=== PATIENT | male | born 1955 | race Caucasian/White ===

== ENCOUNTER 2016-07-26 11:31 | Emergency (ER) | payer MEDICARE ==
[~2016-07-26 11:31] MED LIST: ALLOPURINOL100 MG PO; AMLODIPINE BESYL5 MG PO; FENTANYL75 MCG/HR TD; GABAPENTIN300 M1 PO; LISINOPRIL40 MG PO; METOPROLOL SUCC50 M2 PO; MIRAPEX1 MG PO; TRAMADOL HYDROC50 MG PO
[2016-07-26] MEDS ORDERED: CYCLOBENZAPRINE10 MG PO (15:29)
== END 2016-07-26 12:41 | disposition home or self-care (01) ==
LOC: ED 11:31
DX: S92.505A Nondisplaced unspecified fracture of left lesser toe(s), initial encounter for closed fracture (principal); S20.212A Contusion of left front wall of thorax, initial encounter; S40.012A Contusion of left shoulder, initial encounter; S50.312A Abrasion of left elbow, initial encounter; Z79.899 Other long term (current) drug therapy; Z98.890 Other specified postprocedural states; Z88.1 Allergy status to other antibiotic agents; W18.49XA Other slipping, tripping and stumbling without falling, initial encounter; Y93.89 Activity, other specified; Y92.211 Elementary school as the place of occurrence of the external cause; Y99.9 Unspecified external cause status

== ENCOUNTER → 2016-08-24 | Outpatient (CLI) | payer MEDICARE ==
[~2016-08-24] MED LIST changes: +CYCLOBENZAPRINE10 MG PO
== END | disposition home or self-care (01) ==
LOC: US 16:00
DX: E11.9 Type 2 diabetes mellitus without complications (principal); I89.0 Lymphedema, not elsewhere classified; M79.89 Other specified soft tissue disorders

== ENCOUNTER 2018-01-09 20:00 | Emergency (ER) | payer MEDICARE ==
[~2018-01-09] VITALS: Ht 175.2 cm; Wt 133.8 kg
== END 2018-01-09 21:13 | disposition home or self-care (01) ==
LOC: ED 20:00
DX: G89.29 Other chronic pain (principal); M54.5 Low back pain; Z79.899 Other long term (current) drug therapy; Z88.1 Allergy status to other antibiotic agents; Z91.040 Latex allergy status

== ENCOUNTER 2018-02-07 04:37 | Emergency (ER) | payer MEDICARE ==
[~2018-02-07] VITALS: Ht 172.7 cm; Wt 108.9 kg
[2018-02-07] MEDS ORDERED: HYDROCHLOROTH12.5 M3 PO (04:49)
[2018-02-07] MEDS ORDERED: Hydralazine Hyd25 MG PO (04:49)
== END 2018-02-07 05:17 | disposition home or self-care (01) ==
LOC: ED 04:37
DX: G89.29 Other chronic pain (principal); R20.2 Paresthesia of skin; G25.81 Restless legs syndrome; Z76.5 Malingerer [conscious simulation]; Z88.1 Allergy status to other antibiotic agents; Z91.040 Latex allergy status; Z79.899 Other long term (current) drug therapy

== ENCOUNTER 2018-06-18 15:18 | Emergency (ER) | payer MEDICARE ==
[~2018-06-18] VITALS: Ht 175.2 cm; Wt 136.1 kg
[~2018-06-18 15:18] MED LIST changes: +HYDROCHLOROTH12.5 M3 PO; +Hydralazine Hyd25 MG PO
[2018-06-18] MEDS ORDERED: PREDNISONE10 MG PO (15:52)
[2018-06-18] MEDS ORDERED: CHLORZOXAZONE500 M2 PO (15:52)
[2018-06-18 16:01] LABS: BILIRUBIN 1+ (NEGATIVE); BLOOD TRACE-INTACT (NEGATIVE); CLARITY SL CLOUDY (CLEAR); COLOR YELLOW (YELLOW); GLUCOSE NEGATIVE (NEGATIVE); KETONE NEGATIVE (NEGATIVE); LEUKO ESTERASE NEGATIVE (NEGATIVE); NITRITE NEGATIVE (NEGATIVE); PH 5.5 (5.0-9.0); SPECIFIC GRAVITY >= 1.030 (1.005-1.030)
[2018-06-18 16:40] LABS: EPITHELIAL CELLS 11-16B2ATR; MUCOUS TRACE; RBC 0-2 rbc/hpf (0-2)
[2018-06-18 17:36] LABS: BASO # 0.1 10*3/uL (0.0-0.1); BASO % 0.6 % (0.0-1.0); EOS # 0.1 10*3/uL (0.0-0.4); HEMATOCRIT 49.9 % (42.0-52.0); LYMPH # 1.5 10*3/uL (1.3-4.4); LYMPH % 11.9 % (27.0-41.0); MEAN CELL VOLUME 91.4 fl (80.0-94.0); MEAN CORPUSCULAR HGB 29.3 pg (27.0-31.0); MEAN CORPUSCULAR HGB CONC 32.1 g/dl (33.0-37.0); MEAN PLATELET VOLUME 9.7 fl (9.6-12.3); MONO # 0.6 10*3/uL (0.1-1.0); NEUT # 10.3 10*3/uL (2.3-7.9); NEUT % 80.8 % (47.0-73.0); PLATELET COUNT AUTOMATED 250 10*3/uL (130-400); RED BLOOD COUNT 5.46 10*6/uL (4.50-5.90); RED CELL DISTRI WIDTH 12.8 % (0-14.5); WHITE BLOOD COUNT 12.7 10*3/uL (4.8-10.8)
[2018-06-18 17:48] LABS: ACT PARTIAL THROMBO TIME 24.4 SECONDS (20.8-31.5)
[2018-06-18 18:11] LABS: ALBUMIN 3.3 gm/dl (3.1-4.5); ALKALINE PHOSPHATASE 108 U/L (45-117); BUN 16 mg/dl (7-24); CHLORIDE 98 mmol/L (98-107); CREATININE 0.79 mg/dL (0.70-1.30); POTASSIUM 4.6 mmol/L (3.5-5.1); SGOT/AST 20 IU/L (3-35); SGPT/ALT 28 U/L (12-78); SODIUM 135 mmol/L (136-145)
== END 2018-06-18 18:18 | disposition short-term general hospital (02) ==
LOC: ED 15:18
PROVIDERS: Nurse Practitioner Family
DX: S22.088A Other fracture of T11-T12 vertebra, initial encounter for closed fracture (principal); G89.29 Other chronic pain; Z88.1 Allergy status to other antibiotic agents; Z79.899 Other long term (current) drug therapy; W18.09XA Striking against other object with subsequent fall, initial encounter; Y93.89 Activity, other specified; Y92.89 Other specified places as the place of occurrence of the external cause; Y99.8 Other external cause status

== ENCOUNTER → 2018-09-30 | Outpatient (CLI) | payer MEDICARE ==
[~2018-09-30] MED LIST changes: +CHLORZOXAZONE500 M2 PO; +PREDNISONE10 MG PO
== END | disposition home or self-care (01) ==
LOC: LAB 00:32
DX: R80.9 Proteinuria, unspecified (principal)

== ENCOUNTER → 2019-06-07 | Outpatient (CLI) | payer MEDICARE ==
[2019-06-07 16:05] LABS: BASO # 0.1 10*3/uL (0.0-0.1); BASO % 0.6 % (0.0-1.0); EOS # 0.2 10*3/uL (0.0-0.4); EOS % 2.4 % (1.0-4.0); HEMATOCRIT 46.6 % (42.0-52.0); HEMOGLOBIN 14.1 g/dl (14.0-18.0); LYMPH # 1.7 10*3/uL (1.3-4.4); LYMPH % 18.1 % (27.0-41.0); MEAN CORPUSCULAR HGB 28.1 pg (27.0-31.0); MEAN CORPUSCULAR HGB CONC 30.3 g/dl (33.0-37.0); MEAN PLATELET VOLUME 10.5 fl (9.6-12.3); MONO # 0.7 10*3/uL (0.1-1.0); MONO % 7.7 % (3.0-9.0); NEUT # 6.6 10*3/uL (2.3-7.9); NEUT % 70.7 % (47.0-73.0); PLATELET COUNT AUTOMATED 233 10*3/uL (130-400); RED BLOOD COUNT 5.01 10*6/uL (4.50-5.90); RED CELL DISTRI WIDTH 14.6 % (0-14.5); WHITE BLOOD COUNT 9.3 10*3/uL (4.8-10.8)
[2019-06-07 16:33] LABS: ALBUMIN 2.9 gm/dl (3.1-4.5); ALKALINE PHOSPHATASE 87 U/L (45-117); BUN 22 mg/dl (7-24); CHLORIDE 105 mmol/L (98-107); CREATININE 0.76 mg/dL (0.70-1.30); POTASSIUM 4.5 mmol/L (3.5-5.1); SGOT/AST 23 IU/L (3-35); SGPT/ALT 44 U/L (12-78); SODIUM 141 mmol/L (136-145); TOTAL PROTEIN 6.5 gm/dL (6.4-8.2)
== END | disposition home or self-care (01) ==
LOC: RESCLI 00:26
PROVIDERS: Internal Medicine Nephrology
DX: M87.9 Osteonecrosis, unspecified (principal); R26.9 Unspecified abnormalities of gait and mobility; G89.29 Other chronic pain; I10 Essential (primary) hypertension; K21.9 Gastro-esophageal reflux disease without esophagitis; J40 Bronchitis, not specified as acute or chronic; K04.7 Periapical abscess without sinus; N40.1 Benign prostatic hyperplasia with lower urinary tract symptoms; F32.9 Major depressive disorder, single episode, unspecified; E55.9 Vitamin D deficiency, unspecified; J44.9 Chronic obstructive pulmonary disease, unspecified; G47.30 Sleep apnea, unspecified; L30.9 Dermatitis, unspecified; Z13.9 Encounter for screening, unspecified; R49.0 Dysphonia; Z79.899 Other long term (current) drug therapy; Z88.8 Allergy status to other drugs, medicaments and biological substances

== ENCOUNTER 2019-09-26 09:48 | Inpatient (IN) | payer MEDICARE ==
[~2019-09-26] VITALS: Ht 175.2 cm; Wt 145.4 kg
[2019-09-26 09:58] VITALS: BP 202/129
[2019-09-26 10:39] LABS: BASO # 0.1 10*3/uL (0.0-0.1); BASO % 0.6 % (0.0-1.0); EOS # 0.1 10*3/uL (0.0-0.4); EOS % 0.5 % (1.0-4.0); HEMATOCRIT 43.5 % (42.0-52.0); MEAN CELL VOLUME 92.4 fl (80.0-94.0); MEAN CORPUSCULAR HGB 28.7 pg (27.0-31.0); MEAN PLATELET VOLUME 9.7 fl (9.6-12.3); MONO # 0.3 10*3/uL (0.1-1.0); MONO % 3.4 % (3.0-9.0); NEUT % 84.4 % (47.0-73.0); PLATELET COUNT AUTOMATED 232 10*3/uL (130-400); RED BLOOD COUNT 4.71 10*6/uL (4.50-5.90); RED CELL DISTRI WIDTH 14.2 % (0-14.5); WHITE BLOOD COUNT 9.5 10*3/uL (4.8-10.8)
[2019-09-26 10:56] LABS: ALBUMIN 2.8 gm/dl (3.1-4.5); ALKALINE PHOSPHATASE 87 U/L (45-117); BUN 26 mg/dl (7-24); CHLORIDE 103 mmol/L (98-107); CREATININE 0.76 mg/dL (0.70-1.30); POTASSIUM 4.6 mmol/L (3.5-5.1); SGOT/AST 23 IU/L (3-35); SGPT/ALT 51 U/L (12-78); SODIUM 141 mmol/L (136-145); TOTAL PROTEIN 6.7 gm/dL (6.4-8.2); TROPONIN I 0.031 ng/ml (<0.045)
[2019-09-26 11:11] LABS: BILIRUBIN NEGATIVE (NEGATIVE); BLOOD 1+ (NEGATIVE); CLARITY SL CLOUDY (CLEAR); COLOR YELLOW (YELLOW); GLUCOSE NEGATIVE (NEGATIVE); KETONE NEGATIVE (NEGATIVE); LEUKO ESTERASE NEGATIVE (NEGATIVE); NITRITE NEGATIVE (NEGATIVE); PH 7.5 (5.0-9.0); SPECIFIC GRAVITY 1.015 (1.005-1.030); UROBILINOGEN 0.2 E.U./dl (0.2-1.0)
[2019-09-26 11:20] LABS: BACTERIA TRACE; EPITHELIAL CELLS 0-2; WBC 0-2 wbc/hpf (0-5)
[2019-09-26] MEDS ORDERED: PREDNISONE10 MG PO (13:01)
[2019-09-26] MEDS ORDERED: Duragesic 50 M50 MCG TD (13:02)
[2019-09-26] MEDS ORDERED: NORCO 10-325 T1 EACH PO (13:03)
[2019-09-26] MEDS ORDERED: OMEPRAZOLE20 M2 PO (13:03)
[2019-09-26] MEDS ORDERED: LOPRESSOR100 M1 PO (13:04)
[2019-09-26] MEDS ORDERED: GABAPENTIN400 MG PO (13:05)
[2019-09-26 14:01] VITALS: BP 148/70
[2019-09-26 14:50] VITALS: BP 170/71
[2019-09-26 20:00] VITALS: BP 167/58
[2019-09-27] VITALS: BP 169/66
[2019-09-27 06:19] LABS: BASO # 0.1 10*3/uL (0.0-0.1); BASO % 0.5 % (0.0-1.0); EOS # 0.2 10*3/uL (0.0-0.4); EOS % 1.8 % (1.0-4.0); HEMATOCRIT 45.2 % (42.0-52.0); LYMPH # 1.5 10*3/uL (1.3-4.4); LYMPH % 15.3 % (27.0-41.0); MEAN CELL VOLUME 92.2 fl (80.0-94.0); MEAN CORPUSCULAR HGB 28.6 pg (27.0-31.0); MEAN PLATELET VOLUME 9.8 fl (9.6-12.3); MONO # 0.8 10*3/uL (0.1-1.0); MONO % 7.7 % (3.0-9.0); NEUT # 7.3 10*3/uL (2.3-7.9); NEUT % 73.8 % (47.0-73.0); PLATELET COUNT AUTOMATED 252 10*3/uL (130-400); RED CELL DISTRI WIDTH 14.1 % (0-14.5); WHITE BLOOD COUNT 9.9 10*3/uL (4.8-10.8)
[2019-09-27 06:29] LABS: BUN 22 mg/dl (7-24); CHLORIDE 98 mmol/L (98-107); CREATININE 0.76 mg/dL (0.70-1.30); POTASSIUM 3.9 mmol/L (3.5-5.1); SODIUM 139 mmol/L (136-145)
[2019-09-27 07:52] LABS: VITAMIN D, 25-HYDROXY 23.7 ng/mL (30-100)
[2019-09-27 08:00] VITALS: BP 134/82
[2019-09-27 12:00] VITALS: BP 147/61
[2019-09-27 16:00] VITALS: BP 103/84
[2019-09-27 20:00] VITALS: BP 138/44
[2019-09-27 22:00] VITALS: BP 140/60
[2019-09-28] VITALS: BP 156/83
[2019-09-28 06:08] LABS: BASO # 0.1 10*3/uL (0.0-0.1); BASO % 0.6 % (0.0-1.0); EOS # 0.2 10*3/uL (0.0-0.4); EOS % 2.1 % (1.0-4.0); HEMATOCRIT 45.1 % (42.0-52.0); LYMPH # 1.5 10*3/uL (1.3-4.4); LYMPH % 14.2 % (27.0-41.0); MEAN CORPUSCULAR HGB 29.1 pg (27.0-31.0); MEAN CORPUSCULAR HGB CONC 30.2 g/dl (33.0-37.0); MEAN PLATELET VOLUME 10.1 fl (9.6-12.3); MONO # 0.8 10*3/uL (0.1-1.0); MONO % 7.7 % (3.0-9.0); NEUT # 8.1 10*3/uL (2.3-7.9); NEUT % 74.6 % (47.0-73.0); PLATELET COUNT AUTOMATED 247 10*3/uL (130-400); RED BLOOD COUNT 4.67 10*6/uL (4.50-5.90); RED CELL DISTRI WIDTH 14.3 % (0-14.5); WHITE BLOOD COUNT 10.8 10*3/uL (4.8-10.8)
[2019-09-28 06:11] LABS: MEAN CELL VOLUME 96.6 fl (80.0-94.0)
[2019-09-28 06:24] LABS: BUN 22 mg/dl (7-24); CHLORIDE 97 mmol/L (98-107); CREATININE 0.71 mg/dL (0.70-1.30); POTASSIUM 3.8 mmol/L (3.5-5.1); SODIUM 140 mmol/L (136-145)
[2019-09-28 07:13] LABS: ABG BASE EXCESS 14.7 mmol/L (-2.0-2.0); ARTERIAL BLOOD GAS PH 7.309 (7.35-7.45)
[2019-09-28 12:00] VITALS: BP 105/53
[2019-09-28 12:37] LABS: ABG BASE EXCESS 15.2 mmol/L (-2.0-2.0); ARTERIAL BLOOD GAS PH 7.402 (7.35-7.45)
[2019-09-28 16:00] VITALS: BP 108/52
[2019-09-28 20:00] VITALS: BP 125/55
[2019-09-28 22:00] VITALS: BP 142/69
[2019-09-29] VITALS: BP 134/69
[2019-09-29 06:47] LABS: BUN 26 mg/dl (7-24); CHLORIDE 99 mmol/L (98-107); CREATININE 0.77 mg/dL (0.70-1.30); POTASSIUM 3.7 mmol/L (3.5-5.1); SODIUM 139 mmol/L (136-145)
[2019-09-29 08:00] VITALS: BP 107/35
[2019-09-29 08:31] LABS: BASO % 0.3 % (0.0-1.0); EOS # 0.6 10*3/uL (0.0-0.4); EOS % 4.9 % (1.0-4.0); LYMPH # 3.1 10*3/uL (1.3-4.4); LYMPH % 27.2 % (27.0-41.0); MEAN CORPUSCULAR HGB 28.8 pg (27.0-31.0); MEAN CORPUSCULAR HGB CONC 30.9 g/dl (33.0-37.0); MEAN PLATELET VOLUME 10.2 fl (9.6-12.3); MONO % 8.3 % (3.0-9.0); NEUT # 6.8 10*3/uL (2.3-7.9); PLATELET COUNT AUTOMATED 243 10*3/uL (130-400); RED BLOOD COUNT 5.04 10*6/uL (4.50-5.90); RED CELL DISTRI WIDTH 13.7 % (0-14.5); WHITE BLOOD COUNT 11.5 10*3/uL (4.8-10.8)
[2019-09-29 08:32] LABS: MEAN CELL VOLUME 93.3 fl (80.0-94.0)
[2019-09-29 12:00] VITALS: BP 115/84
[2019-09-29 16:00] VITALS: BP 121/41
[2019-09-29 20:00] VITALS: BP 138/53
[2019-09-30] VITALS: BP 140/62
[2019-09-30 08:00] VITALS: BP 118/42
[2019-09-30 12:00] VITALS: BP 126/45
[2019-09-30 16:00] VITALS: BP 137/51
[2019-09-30 20:00] VITALS: BP 126/57
[2019-10-01] VITALS: BP 134/59
[2019-10-01 06:28] LABS: BASO # 0.1 10*3/uL (0.0-0.1); BASO % 0.5 % (0.0-1.0); EOS # 0.2 10*3/uL (0.0-0.4); EOS % 2.1 % (1.0-4.0); MEAN CELL VOLUME 97.8 fl (80.0-94.0); MEAN CORPUSCULAR HGB 29.1 pg (27.0-31.0); MEAN CORPUSCULAR HGB CONC 29.8 g/dl (33.0-37.0); MONO # 0.9 10*3/uL (0.1-1.0); NEUT # 7.4 10*3/uL (2.3-7.9); NEUT % 69.8 % (47.0-73.0); PLATELET COUNT AUTOMATED 221 10*3/uL (130-400); RED CELL DISTRI WIDTH 14.1 % (0-14.5); WHITE BLOOD COUNT 10.6 10*3/uL (4.8-10.8)
[2019-10-01 07:02] LABS: BUN 32 mg/dl (7-24); CHLORIDE 101 mmol/L (98-107); CREATININE 0.81 mg/dL (0.70-1.30); SODIUM 136 mmol/L (136-145)
[2019-10-01 08:00] VITALS: BP 134/41
[2019-10-01] MEDS ORDERED: LASIX40 MG PO (08:28)
[2019-10-01] MEDS ORDERED: Vitamin D (1,000 UNI PO (08:28)
[2019-10-01] MEDS ORDERED: METOPROLOL TART50 M1 PO (08:28)
[2019-10-01] MEDS ORDERED: AMMONIUM LACTA227 GM T (08:28)
== END 2019-10-01 11:50 | disposition home or self-care (01) | DRG 291 ==
LOC: ED 09:48 → 4E 12:08 → EDHOLD 12:08 → 4E 12:35
PROVIDERS: Emergency Medicine; Internal Medicine; Internal Medicine Critical Care Medicine; Student in an Organized Health Care Education/Training Program; ADMIT Internal Medicine
PROC: 5A09357 Assistance with Respiratory Ventilation, Less than 24 Consecutive Hours, Continuous Positive Airway Pressure (ICD-10-PCS; principal; 2019-09-28)
PROC: 5A09357 Assistance with Respiratory Ventilation, Less than 24 Consecutive Hours, Continuous Positive Airway Pressure (ICD-10-PCS; 2019-09-29)
PROC: 5A09357 Assistance with Respiratory Ventilation, Less than 24 Consecutive Hours, Continuous Positive Airway Pressure (ICD-10-PCS; 2019-09-30)
PROC: 5A09357 Assistance with Respiratory Ventilation, Less than 24 Consecutive Hours, Continuous Positive Airway Pressure (ICD-10-PCS; 2019-10-01)
DX: I11.0 Hypertensive heart disease with heart failure (principal); J96.22 Acute and chronic respiratory failure with hypercapnia; J96.21 Acute and chronic respiratory failure with hypoxia; E44.0 Moderate protein-calorie malnutrition; J44.1 Chronic obstructive pulmonary disease with (acute) exacerbation; E87.3 Alkalosis; Z68.43 Body mass index [BMI] 50.0-59.9, adult; I50.33 Acute on chronic diastolic (congestive) heart failure; M19.90 Unspecified osteoarthritis, unspecified site; D64.9 Anemia, unspecified; E11.65 Type 2 diabetes mellitus with hyperglycemia; G47.33 Obstructive sleep apnea (adult) (pediatric); E11.51 Type 2 diabetes mellitus with diabetic peripheral angiopathy without gangrene; E66.01 Morbid (severe) obesity due to excess calories; G89.29 Other chronic pain; F32.9 Major depressive disorder, single episode, unspecified; M06.9 Rheumatoid arthritis, unspecified; Z88.1 Allergy status to other antibiotic agents; Z82.49 Family history of ischemic heart disease and other diseases of the circulatory system; Z79.899 Other long term (current) drug therapy; Z82.3 Family history of stroke; Z91.19 Patient's noncompliance with other medical treatment and regimen

== ENCOUNTER → 2019-10-05 | Outpatient (CLI) | payer MEDICARE ==
[~2019-10-05] MED LIST changes: +AMMONIUM LACTA227 GM T; +Duragesic 50 M50 MCG TD; +GABAPENTIN400 MG PO; +LASIX40 MG PO; +LOPRESSOR100 M1 PO; +METOPROLOL TART50 M1 PO; +NORCO 10-325 T1 EACH PO; +OMEPRAZOLE20 M2 PO; +Vitamin D (1,000 UNI PO
== END | disposition home or self-care (01) ==
LOC: RESCLI 00:34
DX: K21.9 Gastro-esophageal reflux disease without esophagitis (principal); M54.16 Radiculopathy, lumbar region; M1A Chronic gout; R26.9 Unspecified abnormalities of gait and mobility; G25.81 Restless legs syndrome; R53.82 Chronic fatigue, unspecified; G47.30 Sleep apnea, unspecified; I10 Essential (primary) hypertension; M16.11 Unilateral primary osteoarthritis, right hip; E11.42 Type 2 diabetes mellitus with diabetic polyneuropathy; N40.1 Benign prostatic hyperplasia with lower urinary tract symptoms; R13.10 Dysphagia, unspecified; M47.817 Spondylosis without myelopathy or radiculopathy, lumbosacral region; I73.9 Peripheral vascular disease, unspecified; M16.0 Bilateral primary osteoarthritis of hip; M45.9 Ankylosing spondylitis of unspecified sites in spine; I87.2 Venous insufficiency (chronic) (peripheral); M87.9 Osteonecrosis, unspecified; M06.9 Rheumatoid arthritis, unspecified; G62.9 Polyneuropathy, unspecified; E55.9 Vitamin D deficiency, unspecified; F32.9 Major depressive disorder, single episode, unspecified; F41.9 Anxiety disorder, unspecified; F41.0 Panic disorder [episodic paroxysmal anxiety]; E78.5 Hyperlipidemia, unspecified; J44.9 Chronic obstructive pulmonary disease, unspecified; E11.9 Type 2 diabetes mellitus without complications; E66.01 Morbid (severe) obesity due to excess calories; G89.29 Other chronic pain; H61.20 Impacted cerumen, unspecified ear; Z79.4 Long term (current) use of insulin

== ENCOUNTER → 2019-10-17 | Outpatient (CLI) | payer MEDICARE ==
[2019-10-17 17:31] LABS: BUN 21 mg/dl (7-24); CHLORIDE 107 mmol/L (98-107); CREATININE 0.77 mg/dL (0.70-1.30); POTASSIUM 4.5 mmol/L (3.5-5.1); SODIUM 143 mmol/L (136-145)
[2019-10-18 07:15] LABS: TOTAL PROTEIN, SERUM 6.1 g/dL (6.0-8.5)
[2019-10-18 16:07] LABS: A/G RATIO 1.1 (0.7-1.7); ALBUMIN 3.2 g/dL (2.9-4.4); ALPHA-1-GLOBULIN 0.3 g/dL (0.0-0.4); ALPHA-2-GLOBULIN 0.9 g/dL (0.4-1.0); BETA GLOBULIN 1.1 g/dL (0.7-1.3); GAMMA GLOBULIN 0.7 g/dL (0.4-1.8); GLOBULIN, TOTAL 2.9 g/dL (2.2-3.9); M-SPIKE Not Observed g/dL (Not Observed)
== END | disposition home or self-care (01) ==
LOC: LAB 14:34
PROVIDERS: Internal Medicine Nephrology
DX: S32.009A Unspecified fracture of unspecified lumbar vertebra, initial encounter for closed fracture (principal); I12.9 Hypertensive chronic kidney disease with stage 1 through stage 4 chronic kidney disease, or unspecified chronic kidney disease; N18.3 Chronic kidney disease, stage 3 (moderate); E03.9 Hypothyroidism, unspecified; R60.0 Localized edema; E55.9 Vitamin D deficiency, unspecified; Z79.899 Other long term (current) drug therapy; X58.XXXA Exposure to other specified factors, initial encounter; Y93.89 Activity, other specified; Y92.89 Other specified places as the place of occurrence of the external cause; Y99.8 Other external cause status

== ENCOUNTER → 2019-10-19 | Outpatient (CLI) | payer MEDICARE ==
[2019-10-20 14:29] LABS: BILIRUBIN NEGATIVE (NEGATIVE); BLOOD NEGATIVE (NEGATIVE); CLARITY CLOUDY (CLEAR); COLOR YELLOW (YELLOW); GLUCOSE NEGATIVE (NEGATIVE); KETONE NEGATIVE (NEGATIVE); LEUKO ESTERASE NEGATIVE (NEGATIVE); NITRITE NEGATIVE (NEGATIVE); UROBILINOGEN 0.2 E.U./dl (0.2-1.0)
[2019-10-20 14:34] LABS: BACTERIA 1+; CALCIUM OXALATE CRYSTALS 3+; EPITHELIAL CELLS 0-2; FINE GRANULAR CAST 0-2
[2019-10-21 10:07] LABS: CREATININE,URINE 137.6 mg/dL (Not Estab.)
[2019-10-24 14:11] LABS: ALBUMIN, URINE 76.4 % (.); ALPHA-1-GLOBULIN, URINE 1.2 % (.); ALPHA-2-GLOBULIN, URINE 5.1 % (.); GAMMA GLOBULIN, URINE 6.2 % (.); M-SPIKE, % Not Observed % (Not Observed); PROTEIN,TOTAL - URINE RANDOM 114.3 mg/dL (Not Estab.)
== END | disposition home or self-care (01) ==
LOC: LAB 13:56
PROVIDERS: Internal Medicine Nephrology
DX: I12.9 Hypertensive chronic kidney disease with stage 1 through stage 4 chronic kidney disease, or unspecified chronic kidney disease (principal); N18.2 Chronic kidney disease, stage 2 (mild); D64.9 Anemia, unspecified; E55.9 Vitamin D deficiency, unspecified; R22.0 Localized swelling, mass and lump, head

== ENCOUNTER → 2019-10-25 | Outpatient (CLI) | payer MEDICARE | END | disposition home or self-care (01) | LOC: LAB 10:55 | DX: R53.83 Other fatigue (principal); D64.9 Anemia, unspecified ==

== ENCOUNTER → 2019-11-08 | Outpatient (CLI) | payer MEDICARE | END | disposition home or self-care (01) | LOC: RESCLI 00:38 | DX: Z23 Encounter for immunization (principal); K21.9 Gastro-esophageal reflux disease without esophagitis; R53.83 Other fatigue; G47.30 Sleep apnea, unspecified; M16.11 Unilateral primary osteoarthritis, right hip; E11.42 Type 2 diabetes mellitus with diabetic polyneuropathy; N40.1 Benign prostatic hyperplasia with lower urinary tract symptoms; R13.10 Dysphagia, unspecified; M47.817 Spondylosis without myelopathy or radiculopathy, lumbosacral region; I73.9 Peripheral vascular disease, unspecified; M16.0 Bilateral primary osteoarthritis of hip; M45.9 Ankylosing spondylitis of unspecified sites in spine; I87.2 Venous insufficiency (chronic) (peripheral); M87.9 Osteonecrosis, unspecified; M06.9 Rheumatoid arthritis, unspecified; I10 Essential (primary) hypertension; G62.9 Polyneuropathy, unspecified; E55.9 Vitamin D deficiency, unspecified; F32.9 Major depressive disorder, single episode, unspecified; F41.9 Anxiety disorder, unspecified; F41.0 Panic disorder [episodic paroxysmal anxiety]; E78.5 Hyperlipidemia, unspecified; J44.9 Chronic obstructive pulmonary disease, unspecified; E11.9 Type 2 diabetes mellitus without complications; E66.01 Morbid (severe) obesity due to excess calories; G89.29 Other chronic pain; M1A Chronic gout; H61.20 Impacted cerumen, unspecified ear; Z79.4 Long term (current) use of insulin; Z79.899 Other long term (current) drug therapy; Z98.890 Other specified postprocedural states; Z88.8 Allergy status to other drugs, medicaments and biological substances ==

== ENCOUNTER → 2019-12-14 | Outpatient (CLI) | payer MEDICARE ==
[2019-12-14 13:33] LABS: ALKALINE PHOSPHATASE 89 U/L (45-117); BILIRUBIN, DIRECT < 0.1 mg/dL (0.0-0.2); BUN 22 mg/dl (7-24); SGOT/AST 15 IU/L (3-35); SGPT/ALT 25 U/L (12-78)
== END | disposition home or self-care (01) ==
LOC: LAB 12:32
PROVIDERS: Registered Nurse Critical Care Medicine
DX: Z79.899 Other long term (current) drug therapy (principal)

== ENCOUNTER → 2020-01-16 | Outpatient (CLI) | payer MEDICARE ==
[2020-01-16 10:43] LABS: BASO # 0.1 10*3/uL (0.0-0.1); BASO % 0.8 % (0.0-1.0); EOS # 0.3 10*3/uL (0.0-0.4); EOS % 3.8 % (1.0-4.0); HEMATOCRIT 40.9 % (42.0-52.0); LYMPH # 1.5 10*3/uL (1.3-4.4); LYMPH % 20.1 % (27.0-41.0); MEAN CELL VOLUME 97.4 fl (80.0-94.0); MEAN CORPUSCULAR HGB 29.3 pg (27.0-31.0); MEAN CORPUSCULAR HGB CONC 30.1 g/dl (33.0-37.0); MEAN PLATELET VOLUME 10.7 fl (9.6-12.3); MONO # 0.6 10*3/uL (0.1-1.0); NEUT # 5.1 10*3/uL (2.3-7.9); NEUT % 66.9 % (47.0-73.0); PLATELET COUNT AUTOMATED 194 10*3/uL (130-400); RED CELL DISTRI WIDTH 13.5 % (0-14.5); WHITE BLOOD COUNT 7.6 10*3/uL (4.8-10.8)
[2020-01-16 11:13] LABS: URINE CREATININE RANDOM 94.9 mg/dL
[2020-01-16 11:15] LABS: ALBUMIN 2.9 gm/dl (3.1-4.5); BUN 39 mg/dl (7-24); CHLORIDE 107 mmol/L (98-107); SODIUM 140 mmol/L (136-145)
[2020-01-16 11:19] LABS: ALKALINE PHOSPHATASE 91 U/L (45-117); CREATININE 0.82 mg/dL (0.70-1.30); SGOT/AST 34 IU/L (3-35); SGPT/ALT 28 U/L (12-78); URIC ACID 6.5 mg/dL (3.5-7.2)
[2020-01-16 11:30] LABS: POTASSIUM 5.3 mmol/L (3.5-5.1)
[2020-01-17 09:07] LABS: CREATININE,URINE 86.6 mg/dL (Not Estab.)
== END | disposition home or self-care (01) ==
LOC: LAB 10:06
PROVIDERS: Nurse Practitioner Family; ATTEND Internal Medicine Infectious Disease
DX: M77.31 Calcaneal spur, right foot (principal); N18.1 Chronic kidney disease, stage 1

== ENCOUNTER → 2020-04-04 | Outpatient (CLI) | payer MEDICARE ==
[2020-04-04 12:10] LABS: BILIRUBIN Negative (Negative); BLOOD Negative (Negative); CLARITY Clear (Clear); COLOR Yellow (Yellow); GLUCOSE Negative (Negative); KETONE Negative (Negative); LEUKO ESTERASE 2+ (Negative); NITRITE Negative (Negative); SPECIFIC GRAVITY 1.025 (1.001-1.030); UROBILINOGEN 0.2 E.U./dl (0.0-1.0)
[2020-04-04 12:36] LABS: WBC 21-30 wbc/hpf (0-5)
[2020-04-04 12:38] LABS: BACTERIA 2+; MUCOUS 1+
== END | disposition home or self-care (01) ==
LOC: RESCLI 00:26
PROVIDERS: Hospitalist; ATTEND Internal Medicine Nephrology
DX: M54.16 Radiculopathy, lumbar region (principal); B86 Scabies; G62.9 Polyneuropathy, unspecified; E55.9 Vitamin D deficiency, unspecified; E78.5 Hyperlipidemia, unspecified; M16.11 Unilateral primary osteoarthritis, right hip; G25.81 Restless legs syndrome; F41.9 Anxiety disorder, unspecified; I73.9 Peripheral vascular disease, unspecified; E66.01 Morbid (severe) obesity due to excess calories; M45.9 Ankylosing spondylitis of unspecified sites in spine; F41.0 Panic disorder [episodic paroxysmal anxiety]; N40.1 Benign prostatic hyperplasia with lower urinary tract symptoms; I87.2 Venous insufficiency (chronic) (peripheral); E11.9 Type 2 diabetes mellitus without complications; R13.10 Dysphagia, unspecified; K21.9 Gastro-esophageal reflux disease without esophagitis; R53.82 Chronic fatigue, unspecified; F32.9 Major depressive disorder, single episode, unspecified; J44.9 Chronic obstructive pulmonary disease, unspecified; G47.30 Sleep apnea, unspecified; M06.9 Rheumatoid arthritis, unspecified; M87.9 Osteonecrosis, unspecified; I11.0 Hypertensive heart disease with heart failure; I50.32 Chronic diastolic (congestive) heart failure; R26.9 Unspecified abnormalities of gait and mobility; H61.20 Impacted cerumen, unspecified ear; M1A.9XX0 Chronic gout, unspecified, without tophus (tophi); N39.0 Urinary tract infection, site not specified; Z79.4 Long term (current) use of insulin; Z12.11 Encounter for screening for malignant neoplasm of colon; Z79.899 Other long term (current) drug therapy; Z98.890 Other specified postprocedural states; Z88.8 Allergy status to other drugs, medicaments and biological substances

== ENCOUNTER → 2020-04-17 | Outpatient (CLI) | payer MEDICARE | END | disposition home or self-care (01) | LOC: RESCLI 00:36 | PROVIDERS: ATTEND Student in an Organized Health Care Education/Training Program | DX: B86 Scabies (principal); F32.9 Major depressive disorder, single episode, unspecified; K21.9 Gastro-esophageal reflux disease without esophagitis; G25.81 Restless legs syndrome; N40.1 Benign prostatic hyperplasia with lower urinary tract symptoms; N39.0 Urinary tract infection, site not specified; Z79.899 Other long term (current) drug therapy; Z88.8 Allergy status to other drugs, medicaments and biological substances ==

== ENCOUNTER → 2020-04-25 | Outpatient (CLI) | payer MEDICARE ==
[2020-04-25 09:53] LABS: BASO # 0.1 10*3/uL (0.0-0.1); BASO % 0.8 % (0.0-1.0); EOS # 0.2 10*3/uL (0.0-0.4); EOS % 2.4 % (1.0-4.0); HEMATOCRIT 41.6 % (42.0-52.0); LYMPH # 1.8 10*3/uL (1.3-4.4); LYMPH % 21.2 % (27.0-41.0); MEAN CELL VOLUME 98.3 fl (80.0-94.0); MEAN CORPUSCULAR HGB CONC 30.5 g/dl (33.0-37.0); MEAN PLATELET VOLUME 10.1 fl (9.6-12.3); MONO # 0.6 10*3/uL (0.1-1.0); NEUT # 5.7 10*3/uL (2.3-7.9); PLATELET COUNT AUTOMATED 234 10*3/uL (130-400); RED BLOOD COUNT 4.23 10*6/uL (4.50-5.90); WHITE BLOOD COUNT 8.4 10*3/uL (4.8-10.8)
[2020-04-25 10:21] LABS: ALBUMIN 3.1 gm/dl (3.1-4.5); ALKALINE PHOSPHATASE 86 U/L (45-117); BUN 57 mg/dl (7-24); CHLORIDE 109 mmol/L (98-107); CHOLESTEROL 163 mg/dL (<200); CREATININE 1.04 mg/dL (0.70-1.30); HDL CHOLESTEROL 43 mg/dl (40-60); LDL CHOLESTEROL 93 mg/dL (9-159); POTASSIUM 5.9 mmol/L (3.5-5.1); SGOT/AST 17 IU/L (3-35); SGPT/ALT 34 U/L (12-78); SODIUM 142 mmol/L (136-145); TRIGLYCERIDES 133 mg/dl (<150); VLDL CHOLESTEROL 27 mg/dL (6-40)
== END | disposition home or self-care (01) ==
LOC: US 04-11 14:00 → LAB 08:34
PROVIDERS: Hospitalist; ATTEND Internal Medicine Cardiovascular Disease
DX: I65.23 Occlusion and stenosis of bilateral carotid arteries (principal); N40.1 Benign prostatic hyperplasia with lower urinary tract symptoms; N39.0 Urinary tract infection, site not specified; G25.81 Restless legs syndrome; R51.9 Headache, unspecified; Z79.899 Other long term (current) drug therapy

== ENCOUNTER → 2020-05-07 | Outpatient (CLI) | payer MEDICARE | END | disposition home or self-care (01) | LOC: RESCLI 00:04 | PROVIDERS: ATTEND Emergency Medicine | DX: E55.9 Vitamin D deficiency, unspecified (principal); M54.16 Radiculopathy, lumbar region; E78.5 Hyperlipidemia, unspecified; M16.11 Unilateral primary osteoarthritis, right hip; G25.81 Restless legs syndrome; F41.9 Anxiety disorder, unspecified; I73.9 Peripheral vascular disease, unspecified; E66.01 Morbid (severe) obesity due to excess calories; E11.42 Type 2 diabetes mellitus with diabetic polyneuropathy; M45.9 Ankylosing spondylitis of unspecified sites in spine; G89.29 Other chronic pain; F41.0 Panic disorder [episodic paroxysmal anxiety]; N40.1 Benign prostatic hyperplasia with lower urinary tract symptoms; I87.2 Venous insufficiency (chronic) (peripheral); E11.9 Type 2 diabetes mellitus without complications; M1A Chronic gout; R13.10 Dysphagia, unspecified; K21.9 Gastro-esophageal reflux disease without esophagitis; R53.82 Chronic fatigue, unspecified; F32.9 Major depressive disorder, single episode, unspecified; J44.9 Chronic obstructive pulmonary disease, unspecified; G47.30 Sleep apnea, unspecified; M06.9 Rheumatoid arthritis, unspecified; I11.0 Hypertensive heart disease with heart failure; I50.32 Chronic diastolic (congestive) heart failure; H93.13 Tinnitus, bilateral; B86 Scabies; J30.2 Other seasonal allergic rhinitis; N39.0 Urinary tract infection, site not specified; Z79.899 Other long term (current) drug therapy; Z88.8 Allergy status to other drugs, medicaments and biological substances ==

== ENCOUNTER → 2020-06-26 | Outpatient (CLI) | payer MEDICARE ==
[2020-06-26 11:02] LABS: BILIRUBIN Negative (Negative); BLOOD Negative (Negative); CLARITY Clear (Clear); COLOR Yellow (Yellow); GLUCOSE Negative (Negative); KETONE Negative (Negative); LEUKO ESTERASE 1+ (Negative); NITRITE Negative (Negative); UROBILINOGEN 0.2 E.U./dl (0.0-1.0)
[2020-06-26 11:10] LABS: URINE CREATININE RANDOM 91.8 mg/dL
[2020-06-26 11:29] LABS: ALBUMIN 3.2 gm/dl (3.1-4.5); ALKALINE PHOSPHATASE 97 U/L (45-117); BUN 40 mg/dl (7-24); CHLORIDE 104 mmol/L (98-107); CREATININE 0.82 mg/dL (0.70-1.30); POTASSIUM 4.3 mmol/L (3.5-5.1); SGOT/AST 15 IU/L (3-35); SGPT/ALT 27 U/L (12-78); SODIUM 142 mmol/L (136-145); TOTAL PROTEIN 7.4 gm/dL (6.4-8.2)
[2020-06-26 11:30] LABS: EPITHELIAL CELLS 0-2
== END | disposition home or self-care (01) ==
LOC: LAB 10:23
PROVIDERS: ATTEND Internal Medicine Nephrology
DX: N18.1 Chronic kidney disease, stage 1 (principal); E55.9 Vitamin D deficiency, unspecified; E87.5 Hyperkalemia; D63.1 Anemia in chronic kidney disease

== ENCOUNTER → 2020-08-29 | Outpatient (CLI) | payer MEDICARE | END | disposition home or self-care (01) | LOC: CARD 08-13 14:00 | PROVIDERS: ATTEND Internal Medicine Cardiovascular Disease | DX: I35.8 Other nonrheumatic aortic valve disorders (principal) ==

== ENCOUNTER → 2020-10-09 | Outpatient (CLI) | payer MEDICARE ==
[2020-10-09 11:18] LABS: BASO # 0.1 10*3/uL (0.0-0.1); BASO % 0.6 % (0.0-1.0); EOS # 0.3 10*3/uL (0.0-0.4); EOS % 2.8 % (1.0-4.0); HEMATOCRIT 43.7 % (42.0-52.0); LYMPH # 1.7 10*3/uL (1.3-4.4); LYMPH % 19.2 % (27.0-41.0); MEAN CELL VOLUME 98.6 fl (80.0-94.0); MEAN CORPUSCULAR HGB 29.6 pg (27.0-31.0); MEAN PLATELET VOLUME 10.2 fl (9.6-12.3); MONO # 0.6 10*3/uL (0.1-1.0); MONO % 6.7 % (3.0-9.0); NEUT # 6.3 10*3/uL (2.3-7.9); NEUT % 70.1 % (47.0-73.0); PLATELET COUNT AUTOMATED 208 10*3/uL (130-400); RED BLOOD COUNT 4.43 10*6/uL (4.50-5.90); RED CELL DISTRI WIDTH 13.2 % (0-14.5)
[2020-10-09 11:46] LABS: ALKALINE PHOSPHATASE 95 U/L (45-117); BUN 23 mg/dl (7-24); CHLORIDE 104 mmol/L (98-107); CREATININE 0.85 mg/dL (0.70-1.30); POTASSIUM 4.8 mmol/L (3.5-5.1); SGOT/AST 18 IU/L (3-35); SGPT/ALT 29 U/L (12-78); SODIUM 139 mmol/L (136-145); TOTAL PROTEIN 7.2 gm/dL (6.4-8.2)
== END | disposition home or self-care (01) ==
LOC: LAB 10:32
PROVIDERS: ATTEND Nurse Practitioner Family
DX: I12.9 Hypertensive chronic kidney disease with stage 1 through stage 4 chronic kidney disease, or unspecified chronic kidney disease (principal); N18.1 Chronic kidney disease, stage 1; E87.5 Hyperkalemia; R60.0 Localized edema

== ENCOUNTER → 2021-03-07 | Outpatient (CLI) | payer MEDICARE ==
[2021-03-07 10:41] LABS: BASO # 0.1 10*3/uL (0.0-0.1); BASO % 0.6 % (0.0-1.0); EOS # 0.3 10*3/uL (0.0-0.4); EOS % 2.6 % (1.0-4.0); HEMATOCRIT 43.9 % (42.0-52.0); LYMPH # 2.3 10*3/uL (1.3-4.4); LYMPH % 19.1 % (27.0-41.0); MEAN CELL VOLUME 95.2 fl (80.0-94.0); MEAN CORPUSCULAR HGB 30.2 pg (27.0-31.0); MEAN CORPUSCULAR HGB CONC 31.7 g/dl (33.0-37.0); MEAN PLATELET VOLUME 10.1 fl (9.6-12.3); MONO # 0.9 10*3/uL (0.1-1.0); MONO % 7.7 % (3.0-9.0); NEUT # 8.4 10*3/uL (2.3-7.9); NEUT % 69.2 % (47.0-73.0); PLATELET COUNT AUTOMATED 270 10*3/uL (130-400); RED BLOOD COUNT 4.61 10*6/uL (4.50-5.90); RED CELL DISTRI WIDTH 14.3 % (0-14.5); WHITE BLOOD COUNT 12.1 10*3/uL (4.8-10.8)
[2021-03-07 11:11] LABS: ALBUMIN 2.9 gm/dl (3.1-4.5); ALKALINE PHOSPHATASE 89 U/L (45-117); BUN 36 mg/dl (7-24); CHLORIDE 102 mmol/L (98-107); CHOLESTEROL 173 mg/dL (<200); CREATININE 1.07 mg/dL (0.70-1.30); LDL CHOLESTEROL 99 mg/dL (9-159); SGOT/AST 21 IU/L (3-35); SGPT/ALT 32 U/L (12-78); SODIUM 140 mmol/L (136-145); TOTAL PROTEIN 7.3 gm/dL (6.4-8.2); TRIGLYCERIDES 135 mg/dl (<150); URIC ACID 7.6 mg/dL (3.5-7.2)
[2021-03-08 09:07] LABS: CREATININE,URINE 149.8 mg/dL (Not Estab.)
== END | disposition home or self-care (01) ==
LOC: RESCLI 00:27
PROVIDERS: Student in an Organized Health Care Education/Training Program; ATTEND Internal Medicine
DX: I11.0 Hypertensive heart disease with heart failure (principal); I50.32 Chronic diastolic (congestive) heart failure; J44.9 Chronic obstructive pulmonary disease, unspecified; N40.1 Benign prostatic hyperplasia with lower urinary tract symptoms; F32.9 Major depressive disorder, single episode, unspecified; E55.9 Vitamin D deficiency, unspecified; G25.81 Restless legs syndrome; G58.9 Mononeuropathy, unspecified; M47.817 Spondylosis without myelopathy or radiculopathy, lumbosacral region; K21.9 Gastro-esophageal reflux disease without esophagitis; R26.9 Unspecified abnormalities of gait and mobility; E11.42 Type 2 diabetes mellitus with diabetic polyneuropathy; M16.0 Bilateral primary osteoarthritis of hip; E78.5 Hyperlipidemia, unspecified; R60.1 Generalized edema; M45.9 Ankylosing spondylitis of unspecified sites in spine; H61.23 Impacted cerumen, bilateral; I87.2 Venous insufficiency (chronic) (peripheral); M10.9 Gout, unspecified; Z79.899 Other long term (current) drug therapy

== ENCOUNTER → 2021-03-13 | Outpatient (CLI) | payer MEDICARE | END | disposition home or self-care (01) | LOC: US 08:52 | PROVIDERS: ATTEND Internal Medicine | DX: K76.0 Fatty (change of) liver, not elsewhere classified (principal); N28.89 Other specified disorders of kidney and ureter ==

== ENCOUNTER → 2021-08-15 | Outpatient (CLI) | payer MEDICARE | END | disposition home or self-care (01) | LOC: WOUNDCARE 01:32 | PROVIDERS: ATTEND Nurse Practitioner Family | DX: L89.313 Pressure ulcer of right buttock, stage 3 (principal); E11.40 Type 2 diabetes mellitus with diabetic neuropathy, unspecified; G25.81 Restless legs syndrome; I10 Essential (primary) hypertension; J45.909 Unspecified asthma, uncomplicated; F32.9 Major depressive disorder, single episode, unspecified ==

== ENCOUNTER → 2021-08-22 | Outpatient (CLI) | payer MEDICARE | END | disposition home or self-care (01) | LOC: WOUNDCARE 00:33 | PROVIDERS: ATTEND Nurse Practitioner Family | DX: L89.313 Pressure ulcer of right buttock, stage 3 (principal); E11.40 Type 2 diabetes mellitus with diabetic neuropathy, unspecified; G25.81 Restless legs syndrome; I10 Essential (primary) hypertension; J45.909 Unspecified asthma, uncomplicated; F32.A Depression, unspecified ==

== ENCOUNTER → 2021-09-03 | Outpatient (CLI) | payer MEDICARE | END | disposition home or self-care (01) | LOC: WOUNDCARE 01:32 | PROVIDERS: ATTEND Nurse Practitioner Family | DX: L89.313 Pressure ulcer of right buttock, stage 3 (principal); E11.40 Type 2 diabetes mellitus with diabetic neuropathy, unspecified; G25.81 Restless legs syndrome; I10 Essential (primary) hypertension; J45.909 Unspecified asthma, uncomplicated; F32.9 Major depressive disorder, single episode, unspecified ==

== ENCOUNTER → 2022-05-07 | Outpatient (CLI) | payer MEDICARE ==
[2022-05-07 11:28] LABS: BASO # 0.1 10*3/uL (0.0-0.1); BASO % 0.5 % (0.0-1.0); EOS # 0.3 10*3/uL (0.0-0.4); EOS % 2.3 % (1.0-4.0); HEMATOCRIT 45.8 % (42.0-52.0); LYMPH # 1.7 10*3/uL (1.3-4.4); LYMPH % 14.8 % (27.0-41.0); MEAN CELL VOLUME 99.1 fl (80.0-94.0); MEAN CORPUSCULAR HGB 30.1 pg (27.0-31.0); MEAN CORPUSCULAR HGB CONC 30.3 g/dl (33.0-37.0); MEAN PLATELET VOLUME 10.2 fl (9.6-12.3); MONO # 0.7 10*3/uL (0.1-1.0); MONO % 6.2 % (3.0-9.0); NEUT # 8.6 10*3/uL (2.3-7.9); NEUT % 75.6 % (47.0-73.0); PLATELET COUNT AUTOMATED 228 10*3/uL (130-400); RED BLOOD COUNT 4.62 10*6/uL (4.50-5.90); RED CELL DISTRI WIDTH 14.2 % (0-14.5); WHITE BLOOD COUNT 11.4 10*3/uL (4.8-10.8)
[2022-05-07 11:50] LABS: ALKALINE PHOSPHATASE 93 U/L (46-116); BUN 39 mg/dl (9-23); CHLORIDE 102 mmol/L (98-107); CHOLESTEROL 166 mg/dL (<200); LDL CHOLESTEROL 92 mg/dL (9-159); POTASSIUM 4.7 mmol/L (3.4-5.1); SGPT/ALT 21 U/L (10-49); TOTAL PROTEIN 6.7 gm/dL (6.0-8.0); TRIGLYCERIDES 145 mg/dl (<150)
== END | disposition home or self-care (01) ==
LOC: RESCLI 01:05
PROVIDERS: Student in an Organized Health Care Education/Training Program; ATTEND Internal Medicine
DX: I11.0 Hypertensive heart disease with heart failure (principal); I50.32 Chronic diastolic (congestive) heart failure; J45.909 Unspecified asthma, uncomplicated; E11.9 Type 2 diabetes mellitus without complications; J44.9 Chronic obstructive pulmonary disease, unspecified; M54.16 Radiculopathy, lumbar region; K21.9 Gastro-esophageal reflux disease without esophagitis; N40.1 Benign prostatic hyperplasia with lower urinary tract symptoms; E55.9 Vitamin D deficiency, unspecified; M10.9 Gout, unspecified; F32.9 Major depressive disorder, single episode, unspecified; Z82.3 Family history of stroke; Z98.890 Other specified postprocedural states; Z88.1 Allergy status to other antibiotic agents; Z88.8 Allergy status to other drugs, medicaments and biological substances; Z79.899 Other long term (current) drug therapy

== ENCOUNTER → 2022-12-22 | Outpatient (CLI) | payer MEDICARE ==
[~2022-12-22] MED LIST changes: +CARVEDILOL12.5 MG PO; +HYDROCODONE-AC1 EACH PO; +LASIX80 MG PO
[2022-12-22 11:39] LABS: ALKALINE PHOSPHATASE 102 U/L (46-116); BUN 19 mg/dl (9-23); CHLORIDE 107 mmol/L (98-107); POTASSIUM 4.8 mmol/L (3.4-5.1); SGPT/ALT 10 U/L (10-49); TOTAL PROTEIN 6.5 gm/dL (6.0-8.0)
== END | disposition home or self-care (01) ==
LOC: RESCLI 01:05
PROVIDERS: Student in an Organized Health Care Education/Training Program; ATTEND Internal Medicine
DX: M54.50 Low back pain, unspecified (principal); M45.9 Ankylosing spondylitis of unspecified sites in spine; I10 Essential (primary) hypertension; I87.2 Venous insufficiency (chronic) (peripheral); K21.9 Gastro-esophageal reflux disease without esophagitis; G25.81 Restless legs syndrome; J44.9 Chronic obstructive pulmonary disease, unspecified; E55.9 Vitamin D deficiency, unspecified; M10.9 Gout, unspecified; F32.9 Major depressive disorder, single episode, unspecified; N40.1 Benign prostatic hyperplasia with lower urinary tract symptoms; Z98.890 Other specified postprocedural states; Z79.899 Other long term (current) drug therapy

== ENCOUNTER → 2023-04-23 | Outpatient (CLI) | payer MEDICARE | END | disposition home or self-care (01) | LOC: RESCLI 00:59 | PROVIDERS: ATTEND Internal Medicine | DX: I87.2 Venous insufficiency (chronic) (peripheral) (principal); I73.9 Peripheral vascular disease, unspecified; J44.9 Chronic obstructive pulmonary disease, unspecified; G25.81 Restless legs syndrome; F32.9 Major depressive disorder, single episode, unspecified; Z79.899 Other long term (current) drug therapy ==

== ENCOUNTER 2023-06-30 21:25 | Inpatient (IN) | payer MEDICARE ==
[~2023-06-30] VITALS: Ht 175.3 cm; Wt 141.2 kg
[~2023-06-30 21:25] MED LIST changes: +ADVAIR 250/501 EA INH; +ALDACTONE25 MG PO; +BUMETANIDE1 MG PO; +FENTANYL1 EAC3 T; -OMEPRAZOLE20 M2 PO; +OMEPRAZOLE40 MG PO; +PERCOCET 10-321 EACH PO; +PROAIR DIGIHAL90 MCG INH; +ZOLOFT50 MG PO
[2023-06-30 21:51] VITALS: BP 147/48
[2023-06-30 21:54] LABS: BASO # 0.1 10*3/uL (0.0-0.1); BASO % 0.5 % (0.0-1.0); EOS # 0.2 10*3/uL (0.0-0.4); EOS % 1.4 % (1.0-4.0); HEMATOCRIT 41.5 % (42.0-52.0); LYMPH % 9.6 % (27.0-41.0); MEAN CELL VOLUME 96.5 fl (80.0-94.0); MEAN CORPUSCULAR HGB 29.1 pg (27.0-31.0); MEAN CORPUSCULAR HGB CONC 30.1 g/dl (33.0-37.0); MEAN PLATELET VOLUME 10.2 fl (9.6-12.3); MONO # 0.7 10*3/uL (0.1-1.0); MONO % 6.4 % (3.0-9.0); NEUT # 8.6 10*3/uL (2.3-7.9); NEUT % 81.6 % (47.0-73.0); PLATELET COUNT AUTOMATED 228 10*3/uL (130-400); RED CELL DISTRI WIDTH 13.8 % (0-14.5); WHITE BLOOD COUNT 10.5 10*3/uL (4.8-10.8)
[2023-06-30 22:12] LABS: BUN 75 mg/dl (9-23); CHLORIDE 102 mmol/L (98-107); LIPASE 62 U/L (12-53); POTASSIUM 5.6 mmol/L (3.4-5.1)
[2023-06-30] MEDS ORDERED: Piperacillin Sodium/Tazobact 50 ML IV ONE (22:40)
[2023-06-30] MEDS ORDERED: Vancomycin Hydrochloride 250 ML IV ONE (22:40)
[2023-06-30] MEDS ORDERED: FUROSEMIDE 40 MG/4 ML VIAL IV ONE (22:40)
[2023-06-30] MEDS ORDERED: DEXTROSE 50% 25 GM/50 ML SYR IV ONE (22:40)
[2023-06-30] MEDS ORDERED: INSULIN REGULAR, HUMAN 1 UNIT/0.01 ML IV ONE (22:45)
[2023-07-01] VITALS (8 sets, daily range): BP systolic 102–166; BP diastolic 38–56
[2023-07-01] MEDS ORDERED: TEMAZEPAM 15 MG CAP PO PRN (00:05)
[2023-07-01] MEDS ORDERED: BISACODYL 5 MG TAB PO PRN (00:05)
[2023-07-01] MEDS ORDERED: Magnesium Hydroxide 30 ML UDC PO PRN (00:05)
[2023-07-01] MEDS ORDERED: Acetaminophen/Hydrocodone 5 MG/325 MG TABLET PO PRN (00:05)
[2023-07-01] MEDS ORDERED: ACETAMINOPHEN 325 MG TAB PO PRN (00:05)
[2023-07-01] MEDS ORDERED: Ondansetron Hydrochloride 4 MG/2 ML VIAL IV PRN (00:05)
[2023-07-01] MEDS ORDERED: MORPHINE Sulfate 2 MG/ML SYR IV ONE (02:05)
[2023-07-01] MEDS ORDERED: BUDESONIDE 0.5 MG AMP NEB SCH (02:20)
[2023-07-01] MEDS ORDERED: Albuterol Sulfate 2.5 MG/3 ML VIAL NEB SCH (02:20)
[2023-07-01 02:30] LABS: BUN 77 mg/dl (9-23); CHLORIDE 104 mmol/L (98-107); POTASSIUM 5.3 mmol/L (3.4-5.1)
[2023-07-01 06:10] LABS: ALKALINE PHOSPHATASE 70 U/L (46-116); BUN 70 mg/dl (9-23); CHLORIDE 104 mmol/L (98-107); POTASSIUM 5.8 mmol/L (3.4-5.1); SGPT/ALT 16 U/L (5-49); TOTAL PROTEIN 6.5 gm/dL (6.0-8.0)
[2023-07-01 06:12] LABS: BASO % 0.5 % (0.0-1.0); EOS # 0.2 10*3/uL (0.0-0.4); EOS % 1.7 % (1.0-4.0); HEMATOCRIT 38.8 % (42.0-52.0); LYMPH # 1.1 10*3/uL (1.3-4.4); LYMPH % 12.1 % (27.0-41.0); MEAN CELL VOLUME 96.3 fl (80.0-94.0); MEAN CORPUSCULAR HGB 29.5 pg (27.0-31.0); MEAN CORPUSCULAR HGB CONC 30.7 g/dl (33.0-37.0); MEAN PLATELET VOLUME 10.5 fl (9.6-12.3); MONO # 0.6 10*3/uL (0.1-1.0); MONO % 6.2 % (3.0-9.0); PLATELET COUNT AUTOMATED 191 10*3/uL (130-400); RED BLOOD COUNT 4.03 10*6/uL (4.50-5.90); RED CELL DISTRI WIDTH 13.7 % (0-14.5); WHITE BLOOD COUNT 8.9 10*3/uL (4.8-10.8)
[2023-07-01] MEDS ORDERED: SODIUM POLYSTYRENE SULFONATE 15 GM/60 ML BOT PO ONE (07:20)
[2023-07-01] MEDS ORDERED: BUMETANIDE 1 MG TAB PO SCH ×3 (07:50→22:00)
[2023-07-01] MEDS ORDERED: Acetaminophen/Oxycodone 5 MG/325 MG TABLET PO SCH ×2 (07:50→10:00)
[2023-07-01] MEDS ORDERED: Fluticasone Propionate/Salmeterol 250/50 diskus INH SCH (10:00)
[2023-07-01] MEDS ORDERED: LISINOPRIL 40 MG TAB PO SCH (10:00)
[2023-07-01] MEDS ORDERED: Ceftriaxone Sodium 1 GM in SYRINGE INFUSION 10 ML IV SCH (10:00)
[2023-07-01] MEDS ORDERED: PERCOCET PO SCH (10:00)
[2023-07-01] MEDS ORDERED: ALLOPURINOL 100 MG TAB PO SCH (10:00)
[2023-07-01] MEDS ORDERED: OXYCODONE HCL (IR) 5 MG TAB PO SCH (10:00)
[2023-07-01] MEDS ORDERED: Sertraline Hydrochloride 50 MG TAB PO SCH (10:00)
[2023-07-01] MEDS ORDERED: CARVEDILOL 12.5 MG TAB PO SCH (10:00)
[2023-07-01] MEDS ORDERED: Enoxaparin Sodium 40 MG/0.4 ML SYR SC SCH (10:00)
[2023-07-01] MEDS ORDERED: AMMONIUM LACTATE 12% LOTION T SCH (10:00)
[2023-07-01 18:34] LABS: CHLORIDE 100 mmol/L (98-107); POTASSIUM 5.1 mmol/L (3.4-5.1)
[2023-07-01 18:35] LABS: BUN 58 mg/dl (9-23)
[2023-07-01] MEDS ORDERED: NYSTATIN 15 GM BOT T SCH (22:00)
[2023-07-02] VITALS: BP 132/51
[2023-07-02] MEDS ORDERED: Vancomycin Hydrochloride 1,000 MG in SODIUM CHLORIDE 0.9% 250 ML IV SCH (07:45)
[2023-07-02 07:54] LABS: BUN 57 mg/dl (9-23); CHLORIDE 100 mmol/L (98-107); POTASSIUM 5.2 mmol/L (3.4-5.1)
[2023-07-02 08:00] VITALS: BP 157/66
[2023-07-02] MEDS ORDERED: VANCOMYCIN/WATER FOR INJ (PEG) 300 ML IV SCH (08:00)
[2023-07-02] MEDS ORDERED: SODIUM POLYSTYRENE SULFONATE 15 GM/60 ML BOT PO ONE (08:15)
[2023-07-02] MEDS ORDERED: fentaNYL 12 MCG PATCH T SCH (10:00)
[2023-07-02] MEDS ORDERED: Ceftriaxone Sodium 2 GM in SYRINGE INFUSION 20 ML IV SCH (10:00)
[2023-07-02 12:00] VITALS: BP 123/42
[2023-07-02 16:00] VITALS: BP 168/71
[2023-07-02 20:00] VITALS: BP 129/50
[2023-07-02] MEDS ORDERED: FLOMAX0.4 MG PO (21:08)
[2023-07-02] MEDS ORDERED: Tamsulosin Hydrochloride 0.4 MG CAP PO SCH (22:25)
[2023-07-03] VITALS: BP 106/56; BP 139/53
[2023-07-03 07:19] LABS: CHLORIDE 101 mmol/L (98-107); POTASSIUM 4.6 mmol/L (3.4-5.1)
[2023-07-03 07:20] LABS: BUN 43 mg/dl (9-23)
[2023-07-03 08:00] VITALS: BP 133/44
[2023-07-03] MEDS ORDERED: BUMETANIDE 1 MG TAB PO SCH ×2 (10:00)
[2023-07-03] MEDS ORDERED: OMNICEF300 MG PO (11:05)
[2023-07-03] MEDS ORDERED: BUMETANIDE1 MG PO (11:05)
[2023-07-03 12:00] VITALS: BP 148/73
== END 2023-07-03 14:30 | disposition home or self-care (01) | DRG 640 ==
LOC: ED 21:25 → EDHOLD 23:37 → 4E 23:37
PROVIDERS: Internal Medicine; Student in an Organized Health Care Education/Training Program; ADMIT Internal Medicine; ATTEND Internal Medicine
DX: E87.5 Hyperkalemia (principal); N17.0 Acute kidney failure with tubular necrosis; N39.0 Urinary tract infection, site not specified; I50.9 Heart failure, unspecified; J44.9 Chronic obstructive pulmonary disease, unspecified; I11.0 Hypertensive heart disease with heart failure; G89.29 Other chronic pain; M06.9 Rheumatoid arthritis, unspecified; D53.9 Nutritional anemia, unspecified; F32.9 Major depressive disorder, single episode, unspecified; R74.8 Abnormal levels of other serum enzymes; E11.65 Type 2 diabetes mellitus with hyperglycemia; S81.802A Unspecified open wound, left lower leg, initial encounter; S81.801A Unspecified open wound, right lower leg, initial encounter; X58.XXXA Exposure to other specified factors, initial encounter; Y99.8 Other external cause status; S91.302A Unspecified open wound, left foot, initial encounter; S31.104A Unspecified open wound of abdominal wall, left lower quadrant without penetration into peritoneal cavity, initial encounter; S31.103A Unspecified open wound of abdominal wall, right lower quadrant without penetration into peritoneal cavity, initial encounter; L89.890 Pressure ulcer of other site, unstageable; S21.002A Unspecified open wound of left breast, initial encounter; S21.001A Unspecified open wound of right breast, initial encounter; Z88.1 Allergy status to other antibiotic agents; Z82.3 Family history of stroke; Z80.9 Family history of malignant neoplasm, unspecified; Y93.89 Activity, other specified; Y92.89 Other specified places as the place of occurrence of the external cause

== ENCOUNTER 2023-08-21 06:14 | Emergency (ER) | payer MEDICARE ==
[~2023-08-21] VITALS: Ht 172.7 cm; Wt 155.1 kg
[~2023-08-21 06:14] MED LIST changes: +FLOMAX0.4 MG PO; +OMNICEF300 MG PO
[2023-08-21] MEDS ORDERED: NEURONTIN100 MG PO (06:25)
[2023-08-21 07:46] LABS: BILIRUBIN Negative (Negative); BLOOD Trace-Lysed (Negative); CLARITY Cloudy (Clear); COLOR Yellow (Yellow); GLUCOSE Negative (Negative); KETONE Negative (Negative); LEUKO ESTERASE 2+ (Negative); NITRITE Positive (Negative); PH 5.5 (4.5-8.0); SPECIFIC GRAVITY 1.015 (1.001-1.030); UROBILINOGEN 0.2 E.U./dl (0.0-1.0)
[2023-08-21 08:08] LABS: BACTERIA 4+; WBC TNTC wbc/hpf (0-5)
[2023-08-21] MEDS ORDERED: VIBRAMYCIN HYC100 MG PO (09:35)
[2023-08-21] MEDS ORDERED: Tdap Vaccine 0.5 ML SYR (Adult Vaccine) IM ONE ×2 (09:50→13:30)
[2023-08-21] MEDS ORDERED: Bacitracin Zinc 14 GM TUBE T ONE (13:15)
== END 2023-08-21 15:35 | disposition home or self-care (01) ==
LOC: ED 06:14
PROVIDERS: Internal Medicine
DX: S81.812A Laceration without foreign body, left lower leg, initial encounter (principal); N39.0 Urinary tract infection, site not specified; Z88.8 Allergy status to other drugs, medicaments and biological substances; Z98.890 Other specified postprocedural states; W01.198A Fall on same level from slipping, tripping and stumbling with subsequent striking against other object, initial encounter; Y93.89 Activity, other specified; Y92.009 Unspecified place in unspecified non-institutional (private) residence as the place of occurrence of the external cause; Y99.8 Other external cause status

== ENCOUNTER → 2023-08-25 | Outpatient (CLI) | payer MEDICARE ==
[~2023-08-25] MED LIST changes: +NEURONTIN100 MG PO; +VIBRAMYCIN HYC100 MG PO
== END | disposition home or self-care (01) ==
LOC: WOUNDCARE 03:12
PROVIDERS: ATTEND Nurse Practitioner Family
DX: S81.812A Laceration without foreign body, left lower leg, initial encounter (principal); L89.323 Pressure ulcer of left buttock, stage 3; L89.313 Pressure ulcer of right buttock, stage 3; L89.153 Pressure ulcer of sacral region, stage 3; E11.622 Type 2 diabetes mellitus with other skin ulcer; L98.491 Non-pressure chronic ulcer of skin of other sites limited to breakdown of skin; E11.40 Type 2 diabetes mellitus with diabetic neuropathy, unspecified; I10 Essential (primary) hypertension; I87.2 Venous insufficiency (chronic) (peripheral); G25.81 Restless legs syndrome; J44.9 Chronic obstructive pulmonary disease, unspecified; F32.A Depression, unspecified; Z91.81 History of falling; Z79.899 Other long term (current) drug therapy; W18.09XA Striking against other object with subsequent fall, initial encounter; Y93.89 Activity, other specified; Y92.008 Other place in unspecified non-institutional (private) residence as the place of occurrence of the external cause; Y99.8 Other external cause status

== ENCOUNTER 2023-10-09 10:44 | Inpatient (IN) | payer MEDICARE ==
[~2023-10-09] VITALS: Ht 173 cm; Wt 136.8 kg
[~2023-10-09 10:44] MED LIST changes: +ATORVASTATIN CA20 M1 PO; +METOPROLOL SUCC25 M2 PO; +PRAMIPEXOLE DIHY1 MG PO
[2023-10-09 11:03] LABS: BASO % 0.4 % (0.0-1.0); EOS # 0.2 10*3/uL (0.0-0.4); EOS % 2.9 % (1.0-4.0); HEMATOCRIT 32.3 % (42.0-52.0); LYMPH # 0.9 10*3/uL (1.3-4.4); LYMPH % 10.6 % (27.0-41.0); MEAN CELL VOLUME 100.6 fl (80.0-94.0); MEAN CORPUSCULAR HGB 29.3 pg (27.0-31.0); MEAN CORPUSCULAR HGB CONC 29.1 g/dl (33.0-37.0); MEAN PLATELET VOLUME 10.3 fl (9.6-12.3); MONO # 0.5 10*3/uL (0.1-1.0); MONO % 6.5 % (3.0-9.0); NEUT # 6.6 10*3/uL (2.3-7.9); NEUT % 79.4 % (47.0-73.0); PLATELET COUNT AUTOMATED 187 10*3/uL (130-400); RED BLOOD COUNT 3.21 10*6/uL (4.50-5.90); RED CELL DISTRI WIDTH 13.8 % (0-14.5); WHITE BLOOD COUNT 8.3 10*3/uL (4.8-10.8)
[2023-10-09 11:07] VITALS: BP 150/53
[2023-10-09 11:17] LABS: ACT PARTIAL THROMBO TIME 28.1 SECONDS (20.0-32.1)
[2023-10-09 11:25] LABS: ALKALINE PHOSPHATASE 69 U/L (46-116); BUN 40 mg/dl (9-23); CHLORIDE 97 mmol/L (98-107); POTASSIUM 4.2 mmol/L (3.4-5.1); SGPT/ALT 15 U/L (5-49); TOTAL PROTEIN 6.3 gm/dL (6.0-8.0)
[2023-10-09 11:59] LABS: ABG BASE EXCESS 13.4 mmol/L (-2.0-2.0); ARTERIAL BLOOD GAS PH 7.298 (7.35-7.45)
[2023-10-09 12:12] LABS: BILIRUBIN Negative (Negative); BLOOD Negative (Negative); CLARITY Clear (Clear); COLOR Yellow (Yellow); GLUCOSE Negative (Negative); KETONE Negative (Negative); LEUKO ESTERASE 2+ (Negative); NITRITE Negative (Negative); PH 5.5 (4.5-8.0); SPECIFIC GRAVITY 1.015 (1.001-1.030); UROBILINOGEN 0.2 E.U./dl (0.0-1.0)
[2023-10-09 12:19] LABS: BACTERIA 2+; WBC 51-100 wbc/hpf (0-5)
[2023-10-09 14:00] VITALS: BP 137/62
[2023-10-09] MEDS ORDERED: Ceftriaxone Sodium 1 GM/10 ML SYR IV ONE (14:45)
[2023-10-09] MEDS ORDERED: MORPHINE Sulfate 2 MG/ML SYR IV PRN (15:20)
[2023-10-09] MEDS ORDERED: Acetaminophen/Hydrocodone 5 MG/325 MG TABLET PO PRN (15:20)
[2023-10-09] MEDS ORDERED: ACETAMINOPHEN 325 MG TAB PO PRN (15:20)
[2023-10-09] MEDS ORDERED: TEMAZEPAM 15 MG CAP PO PRN (15:20)
[2023-10-09] MEDS ORDERED: Ondansetron Hydrochloride 4 MG/2 ML VIAL IV PRN (15:20)
[2023-10-09] MEDS ORDERED: Magnesium Hydroxide 30 ML UDC PO PRN (15:20)
[2023-10-09] MEDS ORDERED: BISACODYL 5 MG TAB PO PRN (15:20)
[2023-10-09] MEDS ORDERED: BISACODYL 10 MG SUPP R PRN (15:20)
[2023-10-09] MEDS ORDERED: ACETAMINOPHEN 650 MG SUPP R PRN (15:20)
[2023-10-09] MEDS ORDERED: Menthol/Zinc Oxide 4 GM THIN T SCH (15:55)
[2023-10-09] MEDS ORDERED: MICONAZOLE NITRATE 2% 75 GM BOT T PRN (16:15)
[2023-10-09] MEDS ORDERED: DEXTROSE 10 % IN WATER 250 ML IV PRN (16:20)
[2023-10-09] MEDS ORDERED: INSULIN LISPRO 1 UNIT/0.01 ML SQ SCH (16:30)
[2023-10-09 16:32] LABS: ABG BASE EXCESS 11.6 mmol/L (-2.0-2.0); ARTERIAL BLOOD GAS PH 7.338 (7.35-7.45)
[2023-10-09] MEDS ORDERED: METOLAZONE 5 MG TAB PO ONE (16:35)
[2023-10-09] MEDS ORDERED: BUMETANIDE 1 MG/4 ML VIAL IV ONE (16:35)
[2023-10-09] MEDS ORDERED: VANCOMYCIN/WATER FOR INJ (PEG) 400 ML IV SCH (18:00)
[2023-10-09 19:59] VITALS: BP 155/45
[2023-10-09] MEDS ORDERED: MICONAZOLE NITRATE 2% 75 GM BOT T SCH (22:00)
[2023-10-09] MEDS ORDERED: Ceftriaxone Sodium 2 GM in SYRINGE INFUSION 20 ML IV SCH (22:00)
[2023-10-10 00:10] VITALS: BP 132/57
[2023-10-10 03:10] VITALS: BP 153/51
[2023-10-10 03:48] LABS: BASO % 0.4 % (0.0-1.0); EOS # 0.2 10*3/uL (0.0-0.4); EOS % 2.7 % (1.0-4.0); HEMATOCRIT 32.8 % (42.0-52.0); LYMPH # 0.8 10*3/uL (1.3-4.4); LYMPH % 9.9 % (27.0-41.0); MEAN CELL VOLUME 98.5 fl (80.0-94.0); MEAN CORPUSCULAR HGB 29.1 pg (27.0-31.0); MEAN CORPUSCULAR HGB CONC 29.6 g/dl (33.0-37.0); MEAN PLATELET VOLUME 10.7 fl (9.6-12.3); MONO # 0.5 10*3/uL (0.1-1.0); MONO % 6.3 % (3.0-9.0); NEUT # 6.8 10*3/uL (2.3-7.9); NEUT % 80.5 % (47.0-73.0); PLATELET COUNT AUTOMATED 200 10*3/uL (130-400); RED BLOOD COUNT 3.33 10*6/uL (4.50-5.90); RED CELL DISTRI WIDTH 14.1 % (0-14.5); WHITE BLOOD COUNT 8.5 10*3/uL (4.8-10.8)
[2023-10-10 03:59] LABS: ACT PARTIAL THROMBO TIME 27.6 SECONDS (20.0-32.1)
[2023-10-10 04:13] LABS: ALKALINE PHOSPHATASE 71 U/L (46-116); BUN 33 mg/dl (9-23); CHLORIDE 96 mmol/L (98-107); CHOLESTEROL 123 mg/dL (<200); FREE T4 1.16 ng/dl (0.89-1.76); LDL CHOLESTEROL 62 mg/dL (9-159); POTASSIUM 4.1 mmol/L (3.4-5.1); SGPT/ALT 29 U/L (5-49); TOTAL PROTEIN 5.9 gm/dL (6.0-8.0); TRIGLYCERIDES 111 mg/dl (<150)
[2023-10-10 06:35] VITALS: BP 142/51
[2023-10-10 07:13] LABS: VITAMIN D, 25-HYDROXY 53.2 ng/mL (30-100)
[2023-10-10 08:30] VITALS: BP 122/58
[2023-10-10] MEDS ORDERED: METOLAZONE 5 MG TAB PO SCH ×2 (09:30→10:10)
[2023-10-10] MEDS ORDERED: Enoxaparin Sodium 40 MG/0.4 ML SYR SC SCH (10:00)
[2023-10-10] MEDS ORDERED: BUMETANIDE 1 MG/4 ML VIAL IV SCH ×2 (10:00)
[2023-10-10] MEDS ORDERED: MAGNESIUM SULFATE 50 ML IV ONE (13:05)
[2023-10-10 16:21] VITALS: BP 160/96
[2023-10-10 19:25] VITALS: BP 157/64
[2023-10-10] MEDS ORDERED: GABAPENTIN 300 MG CAP PO SCH (22:00)
[2023-10-10] MEDS ORDERED: ALDACTONE25 M1 PO (22:47)
[2023-10-10] MEDS ORDERED: KAPSPARGO SPRIN50 MG PO (22:48)
[2023-10-10] MEDS ORDERED: PHARMASSURE V500 MCG PO (22:49)
[2023-10-10] MEDS ORDERED: LIPITOR20 MG PO (22:50)
[2023-10-10] MEDS ORDERED: MELATONIN5 M1 PO (22:50)
[2023-10-10] MEDS ORDERED: fentaNYL 25 MCG PATCH T SCH (22:55)
[2023-10-11] VITALS (11 sets, daily range): BP systolic 128–192; BP diastolic 35–98
[2023-10-11] MEDS ORDERED: LISINOPRIL 40 MG TAB PO SCH ×2 (02:20→10:00)
[2023-10-11] MEDS ORDERED: METOPROLOL SUCCINATE XR 50 MG TAB PO SCH ×2 (05:40→10:00)
[2023-10-11] MEDS ORDERED: Pantoprazole Sodium 40 MG TAB PO SCH (06:00)
[2023-10-11 07:06] LABS: BASO % 0.5 % (0.0-1.0); EOS # 0.2 10*3/uL (0.0-0.4); EOS % 2.7 % (1.0-4.0); HEMATOCRIT 36.8 % (42.0-52.0); LYMPH # 1.4 10*3/uL (1.3-4.4); LYMPH % 15.8 % (27.0-41.0); MEAN CELL VOLUME 98.1 fl (80.0-94.0); MEAN CORPUSCULAR HGB 29.6 pg (27.0-31.0); MEAN CORPUSCULAR HGB CONC 30.2 g/dl (33.0-37.0); MEAN PLATELET VOLUME 10.8 fl (9.6-12.3); MONO # 0.6 10*3/uL (0.1-1.0); NEUT # 6.4 10*3/uL (2.3-7.9); NEUT % 73.5 % (47.0-73.0); PLATELET COUNT AUTOMATED 239 10*3/uL (130-400); RED BLOOD COUNT 3.75 10*6/uL (4.50-5.90); RED CELL DISTRI WIDTH 13.7 % (0-14.5); WHITE BLOOD COUNT 8.7 10*3/uL (4.8-10.8)
[2023-10-11 07:31] LABS: BUN 25 mg/dl (9-23); CHLORIDE 92 mmol/L (98-107); POTASSIUM 3.8 mmol/L (3.4-5.1)
[2023-10-11] MEDS ORDERED: Sertraline Hydrochloride 50 MG TAB PO SCH (10:00)
[2023-10-11] MEDS ORDERED: ALLOPURINOL 100 MG TAB PO SCH (10:00)
[2023-10-11] MEDS ORDERED: CYANOCOBALAMIN 500 MCG TAB PO SCH (10:00)
[2023-10-11] MEDS ORDERED: ATORVASTATIN CALCIUM 20 MG TAB PO SCH (10:00)
[2023-10-11] MEDS ORDERED: Tamsulosin Hydrochloride 0.4 MG CAP PO SCH (10:00)
[2023-10-11] MEDS ORDERED: ASPIRIN ENTERIC COATED 81 MG TAB PO SCH (11:25)
[2023-10-11] MEDS ORDERED: SODIUM CHLORIDE 0.9% 100 ML BAG IV ONE (13:25)
[2023-10-11] MEDS ORDERED: IOHEXOL 350 MG/ML 100 ML VIAL IV ONE ×2 (13:25→16:59)
[2023-10-11] MEDS ORDERED: AMMONIUM LACTATE 12% LOTION T SCH ×2 (18:00→22:00)
[2023-10-11] MEDS ORDERED: NYSTATIN 15 GM BOT T SCH (22:00)
[2023-10-12] VITALS: BP 170/58
[2023-10-12 07:16] LABS: BASO % 0.4 % (0.0-1.0); EOS # 0.3 10*3/uL (0.0-0.4); EOS % 2.7 % (1.0-4.0); HEMATOCRIT 34.9 % (42.0-52.0); LYMPH % 11.2 % (27.0-41.0); MEAN CELL VOLUME 99.4 fl (80.0-94.0); MEAN CORPUSCULAR HGB 29.6 pg (27.0-31.0); MEAN CORPUSCULAR HGB CONC 29.8 g/dl (33.0-37.0); MEAN PLATELET VOLUME 10.8 fl (9.6-12.3); MONO # 0.6 10*3/uL (0.1-1.0); MONO % 6.9 % (3.0-9.0); NEUT # 7.2 10*3/uL (2.3-7.9); NEUT % 78.1 % (47.0-73.0); PLATELET COUNT AUTOMATED 224 10*3/uL (130-400); RED BLOOD COUNT 3.51 10*6/uL (4.50-5.90); RED CELL DISTRI WIDTH 13.7 % (0-14.5); WHITE BLOOD COUNT 9.2 10*3/uL (4.8-10.8)
[2023-10-12 07:59] LABS: BUN 24 mg/dl (9-23); CHLORIDE 91 mmol/L (98-107); POTASSIUM 3.9 mmol/L (3.4-5.1)
[2023-10-12 08:00] VITALS: BP 173/45
[2023-10-12] MEDS ORDERED: SPIRONOLACTONE 25 MG TAB PO SCH (10:00)
[2023-10-12] MEDS ORDERED: fentaNYL 25 MCG PATCH T SCH (10:00)
[2023-10-12] MEDS ORDERED: fentaNYL 12 MCG PATCH T SCH (11:00)
[2023-10-12 12:00] VITALS: BP 152/46
[2023-10-12 16:00] VITALS: BP 124/44
[2023-10-12] MEDS ORDERED: Menthol/Zinc Oxide 4 GM THIN T SCH (18:00)
[2023-10-12 20:00] VITALS: BP 100/53
[2023-10-12] MEDS ORDERED: Sertraline Hydrochloride 50 MG TAB PO SCH (22:00)
[2023-10-12] MEDS ORDERED: CLOBETASOL PROPIONATE 30 GM TUBE T SCH (22:00)
[2023-10-13] VITALS: BP 111/58
[2023-10-13] MEDS ORDERED: Regadenoson 0.4 MG/5 ML SYR IV ONE (06:47)
[2023-10-13 07:20] LABS: BASO % 0.4 % (0.0-1.0); EOS # 0.2 10*3/uL (0.0-0.4); EOS % 2.6 % (1.0-4.0); HEMATOCRIT 36.8 % (42.0-52.0); LYMPH # 1.4 10*3/uL (1.3-4.4); LYMPH % 15.4 % (27.0-41.0); MEAN CORPUSCULAR HGB CONC 28.3 g/dl (33.0-37.0); MONO # 0.7 10*3/uL (0.1-1.0); MONO % 7.6 % (3.0-9.0); NEUT # 6.9 10*3/uL (2.3-7.9); NEUT % 73.6 % (47.0-73.0); PLATELET COUNT AUTOMATED 240 10*3/uL (130-400); RED BLOOD COUNT 3.59 10*6/uL (4.50-5.90); RED CELL DISTRI WIDTH 13.7 % (0-14.5); WHITE BLOOD COUNT 9.4 10*3/uL (4.8-10.8)
[2023-10-13 07:37] LABS: ALKALINE PHOSPHATASE 73 U/L (46-116); BUN 26 mg/dl (9-23); CHLORIDE 89 mmol/L (98-107); SGPT/ALT 63 U/L (5-49); TOTAL PROTEIN 6.4 gm/dL (6.0-8.0)
[2023-10-13 07:41] LABS: MEAN CELL VOLUME 102.5 fl (80.0-94.0)
[2023-10-13 08:00] VITALS: BP 132/42
[2023-10-13 12:00] VITALS: BP 139/48
[2023-10-13 16:00] VITALS: BP 115/40
[2023-10-13 20:00] VITALS: BP 140/59
[2023-10-14] VITALS: BP 168/68
[2023-10-14 06:19] LABS: BASO % 0.5 % (0.0-1.0); EOS # 0.3 10*3/uL (0.0-0.4); EOS % 3.2 % (1.0-4.0); HEMATOCRIT 33.9 % (42.0-52.0); LYMPH % 12.7 % (27.0-41.0); MEAN CELL VOLUME 102.4 fl (80.0-94.0); MEAN CORPUSCULAR HGB 29.3 pg (27.0-31.0); MEAN CORPUSCULAR HGB CONC 28.6 g/dl (33.0-37.0); MEAN PLATELET VOLUME 10.8 fl (9.6-12.3); MONO # 0.6 10*3/uL (0.1-1.0); MONO % 7.5 % (3.0-9.0); NEUT # 5.9 10*3/uL (2.3-7.9); NEUT % 75.7 % (47.0-73.0); PLATELET COUNT AUTOMATED 222 10*3/uL (130-400); RED BLOOD COUNT 3.31 10*6/uL (4.50-5.90); RED CELL DISTRI WIDTH 13.6 % (0-14.5); WHITE BLOOD COUNT 7.7 10*3/uL (4.8-10.8)
[2023-10-14 06:48] LABS: BUN 27 mg/dl (9-23); CHLORIDE 91 mmol/L (98-107); POTASSIUM 3.8 mmol/L (3.4-5.1)
[2023-10-14 08:00] VITALS: BP 149/50
[2023-10-14 12:00] VITALS: BP 154/60
[2023-10-14 16:00] VITALS: BP 120/59
[2023-10-14 20:00] VITALS: BP 107/72
[2023-10-15] VITALS: BP 108/79
[2023-10-15] MEDS ORDERED: FOAM BANDAGE 1 EACH BANDAGE T ONE (05:25)
[2023-10-15 06:43] LABS: BASO # 0.1 10*3/uL (0.0-0.1); BASO % 0.7 % (0.0-1.0); EOS # 0.3 10*3/uL (0.0-0.4); EOS % 3.9 % (1.0-4.0); HEMATOCRIT 34.1 % (42.0-52.0); LYMPH % 12.8 % (27.0-41.0); MEAN CELL VOLUME 100.6 fl (80.0-94.0); MEAN CORPUSCULAR HGB 29.5 pg (27.0-31.0); MEAN CORPUSCULAR HGB CONC 29.3 g/dl (33.0-37.0); MEAN PLATELET VOLUME 10.9 fl (9.6-12.3); MONO # 0.6 10*3/uL (0.1-1.0); MONO % 7.2 % (3.0-9.0); NEUT % 74.7 % (47.0-73.0); PLATELET COUNT AUTOMATED 226 10*3/uL (130-400); RED BLOOD COUNT 3.39 10*6/uL (4.50-5.90); RED CELL DISTRI WIDTH 13.5 % (0-14.5)
[2023-10-15 07:03] LABS: BUN 33 mg/dl (9-23); CHLORIDE 90 mmol/L (98-107); POTASSIUM 4.3 mmol/L (3.4-5.1)
[2023-10-15 08:00] VITALS: BP 166/77
[2023-10-15 11:54] LABS: ABG BASE EXCESS 21.2 mmol/L (-2.0-2.0); ARTERIAL BLOOD GAS PH 7.224 (7.35-7.45)
[2023-10-15 12:00] VITALS: BP 99/85
[2023-10-15 16:00] VITALS: BP 126/43
[2023-10-15 20:00] VITALS: BP 161/63
[2023-10-16] VITALS: BP 158/47
[2023-10-16 08:00] VITALS: BP 139/57
[2023-10-16 12:00] VITALS: BP 138/52
[2023-10-16] MEDS ORDERED: FOAM BANDAGE 1 EACH BANDAGE T ONE (14:08)
[2023-10-16 16:00] VITALS: BP 136/54
[2023-10-16 20:00] VITALS: BP 138/85
[2023-10-17] VITALS: BP 146/53
[2023-10-17 07:02] LABS: BUN 34 mg/dl (9-23); CHLORIDE 90 mmol/L (98-107); POTASSIUM 4.4 mmol/L (3.4-5.1)
[2023-10-17 08:43] VITALS: BP 111/88
[2023-10-17 12:24] VITALS: BP 131/86
[2023-10-17 16:59] VITALS: BP 130/60
[2023-10-17 20:00] VITALS: BP 109/48
[2023-10-18] VITALS: BP 141/67
[2023-10-18 07:13] LABS: BUN 32 mg/dl (9-23); CHLORIDE 91 mmol/L (98-107); POTASSIUM 4.1 mmol/L (3.4-5.1)
[2023-10-18 08:00] VITALS: BP 140/52
[2023-10-18] MEDS ORDERED: FOAM BANDAGE 1 EACH BANDAGE T ONE (10:50)
[2023-10-18 12:00] VITALS: BP 97/50
[2023-10-18 16:00] VITALS: BP 135/60
[2023-10-18] MEDS ORDERED: CALCIUM (TUMS) 500MG PO ONE (19:50)
[2023-10-18 20:00] VITALS: BP 128/62
[2023-10-19] VITALS: BP 98/56
[2023-10-19 06:34] LABS: BASO % 0.5 % (0.0-1.0); EOS # 0.3 10*3/uL (0.0-0.4); EOS % 3.1 % (1.0-4.0); LYMPH # 1.6 10*3/uL (1.3-4.4); LYMPH % 20.5 % (27.0-41.0); MEAN CORPUSCULAR HGB 29.1 pg (27.0-31.0); MEAN CORPUSCULAR HGB CONC 29.1 g/dl (33.0-37.0); MEAN PLATELET VOLUME 10.9 fl (9.6-12.3); MONO # 0.6 10*3/uL (0.1-1.0); NEUT # 5.4 10*3/uL (2.3-7.9); NEUT % 67.3 % (47.0-73.0); PLATELET COUNT AUTOMATED 233 10*3/uL (130-400); RED CELL DISTRI WIDTH 13.8 % (0-14.5)
[2023-10-19 06:55] LABS: BUN 40 mg/dl (9-23); CHLORIDE 90 mmol/L (98-107); POTASSIUM 4.6 mmol/L (3.4-5.1)
[2023-10-19 08:43] LABS: ABG BASE EXCESS 18.7 mmol/L (-2.0-2.0); ARTERIAL BLOOD GAS PH 7.443 (7.35-7.45)
[2023-10-19 12:25] VITALS: BP 94/51
[2023-10-19 16:00] VITALS: BP 85/48
[2023-10-19 20:00] VITALS: BP 107/34
[2023-10-19] MEDS ORDERED: NYSTATIN 15 GM BOT T SCH (22:00)
[2023-10-19] MEDS ORDERED: LIDOCAINE 5% ANORECTAL CREAM T SCH (22:00)
[2023-10-19] MEDS ORDERED: SILVER SULFADIAZINE 25 GM TUBE T SCH (22:00)
[2023-10-20] VITALS: BP 112/58
[2023-10-20 08:00] VITALS: BP 118/70
[2023-10-20 08:27] LABS: CHLORIDE 90 mmol/L (98-107)
[2023-10-20 08:42] LABS: BUN 51 mg/dl (9-23)
[2023-10-20] MEDS ORDERED: SODIUM CHLORIDE 0.9% 500 ML IV SCH (09:10)
[2023-10-20] MEDS ORDERED: CALCIUM (TUMS) 500MG PO ONE (09:55)
[2023-10-20 12:00] VITALS: BP 111/50
[2023-10-20 17:00] VITALS: BP 111/50; BP 152/55
[2023-10-20 20:00] VITALS: BP 113/59
[2023-10-21] VITALS: BP 106/49
[2023-10-21 06:32] LABS: BUN 55 mg/dl (9-23); CHLORIDE 91 mmol/L (98-107); POTASSIUM 4.8 mmol/L (3.4-5.1)
[2023-10-21 08:00] VITALS: BP 112/48
[2023-10-21 11:55] VITALS: BP 96/49
[2023-10-21 16:00] VITALS: BP 124/57
[2023-10-21 20:00] VITALS: BP 122/59
[2023-10-22] VITALS: BP 124/61
[2023-10-22 05:51] LABS: POTASSIUM 5.3 mmol/L (3.4-5.1)
[2023-10-22] MEDS ORDERED: fentaNYL 12 MCG PATCH T SCH (06:20)
[2023-10-22] MEDS ORDERED: SODIUM CHLORIDE 0.9% 500 ML IV ONE (07:50)
[2023-10-22] MEDS ORDERED: CALCIUM (TUMS) 500MG PO ONE (07:50)
[2023-10-22 08:00] VITALS: BP 130/60
[2023-10-22] MEDS ORDERED: BUMETANIDE 1 MG/4 ML VIAL IV ONE (09:15)
[2023-10-22 12:00] VITALS: BP 112/72
[2023-10-22 14:23] LABS: BUN 49 mg/dl (9-23); CHLORIDE 93 mmol/L (98-107); POTASSIUM 5.3 mmol/L (3.4-5.1)
[2023-10-22 16:02] VITALS: BP 143/48
[2023-10-22 20:00] VITALS: BP 128/45
[2023-10-22] MEDS ORDERED: CALCIUM (TUMS) 500MG PO PRN (21:25)
[2023-10-23] VITALS: BP 119/40
[2023-10-23 05:21] LABS: BUN 48 mg/dl (9-23); CHLORIDE 95 mmol/L (98-107); POTASSIUM 4.9 mmol/L (3.4-5.1)
[2023-10-23 06:13] LABS: BASO # 0.1 10*3/uL (0.0-0.1); BASO % 0.7 % (0.0-1.0); EOS # 0.3 10*3/uL (0.0-0.4); EOS % 3.6 % (1.0-4.0); HEMATOCRIT 31.6 % (42.0-52.0); LYMPH # 1.2 10*3/uL (1.3-4.4); LYMPH % 17.1 % (27.0-41.0); MEAN CELL VOLUME 98.8 fl (80.0-94.0); MEAN CORPUSCULAR HGB CONC 30.4 g/dl (33.0-37.0); MEAN PLATELET VOLUME 11.7 fl (9.6-12.3); MONO # 0.4 10*3/uL (0.1-1.0); MONO % 5.9 % (3.0-9.0); NEUT % 72.1 % (47.0-73.0); PLATELET COUNT AUTOMATED 188 10*3/uL (130-400); RED CELL DISTRI WIDTH 13.4 % (0-14.5); WHITE BLOOD COUNT 6.9 10*3/uL (4.8-10.8)
[2023-10-23 08:00] VITALS: BP 124/52
[2023-10-23 12:00] VITALS: BP 122/48
== END 2023-10-23 16:15 | disposition home health service (06) | DRG 291 ==
LOC: ED 10:44 → EDHOLD 14:25 → 4E 10-11 15:50
PROVIDERS: Emergency Medicine; Internal Medicine; Occupational Therapist; Student in an Organized Health Care Education/Training Program; ADMIT Internal Medicine; ATTEND Internal Medicine
PROC: 5A09457 Assistance with Respiratory Ventilation, 24-96 Consecutive Hours, Continuous Positive Airway Pressure (ICD-10-PCS; principal; 2023-10-09)
PROC: 5A0935A Assistance with Respiratory Ventilation, Less than 24 Consecutive Hours, High Flow/Velocity Cannula (ICD-10-PCS; 2023-10-11)
PROC: 5A0935A Assistance with Respiratory Ventilation, Less than 24 Consecutive Hours, High Flow/Velocity Cannula (ICD-10-PCS; 2023-10-11)
PROC: 5A09357 Assistance with Respiratory Ventilation, Less than 24 Consecutive Hours, Continuous Positive Airway Pressure (ICD-10-PCS; 2023-10-11)
PROC: 05HC33Z Insertion of Infusion Device into Left Basilic Vein, Percutaneous Approach (ICD-10-PCS; 2023-10-11)
PROC: B54NZZA Ultrasonography of Left Upper Extremity Veins, Guidance (ICD-10-PCS; 2023-10-11)
PROC: 5A0935A Assistance with Respiratory Ventilation, Less than 24 Consecutive Hours, High Flow/Velocity Cannula (ICD-10-PCS; 2023-10-12)
PROC: 5A09357 Assistance with Respiratory Ventilation, Less than 24 Consecutive Hours, Continuous Positive Airway Pressure (ICD-10-PCS; 2023-10-12)
PROC: 5A0935A Assistance with Respiratory Ventilation, Less than 24 Consecutive Hours, High Flow/Velocity Cannula (ICD-10-PCS; 2023-10-13)
PROC: 5A09357 Assistance with Respiratory Ventilation, Less than 24 Consecutive Hours, Continuous Positive Airway Pressure (ICD-10-PCS; 2023-10-13)
PROC: 4A02XM4 Measurement of Cardiac Total Activity, External Approach (ICD-10-PCS; 2023-10-13)
PROC: 3E073KZ Introduction of Other Diagnostic Substance into Coronary Artery, Percutaneous Approach (ICD-10-PCS; 2023-10-13)
PROC: 5A0935A Assistance with Respiratory Ventilation, Less than 24 Consecutive Hours, High Flow/Velocity Cannula (ICD-10-PCS; 2023-10-14)
PROC: 5A09357 Assistance with Respiratory Ventilation, Less than 24 Consecutive Hours, Continuous Positive Airway Pressure (ICD-10-PCS; 2023-10-14)
PROC: 5A09357 Assistance with Respiratory Ventilation, Less than 24 Consecutive Hours, Continuous Positive Airway Pressure (ICD-10-PCS; 2023-10-15)
PROC: 5A09357 Assistance with Respiratory Ventilation, Less than 24 Consecutive Hours, Continuous Positive Airway Pressure (ICD-10-PCS; 2023-10-16)
PROC: 5A09357 Assistance with Respiratory Ventilation, Less than 24 Consecutive Hours, Continuous Positive Airway Pressure (ICD-10-PCS; 2023-10-17)
PROC: 5A09357 Assistance with Respiratory Ventilation, Less than 24 Consecutive Hours, Continuous Positive Airway Pressure (ICD-10-PCS; 2023-10-19)
PROC: 5A09357 Assistance with Respiratory Ventilation, Less than 24 Consecutive Hours, Continuous Positive Airway Pressure (ICD-10-PCS; 2023-10-20)
PROC: 5A09357 Assistance with Respiratory Ventilation, Less than 24 Consecutive Hours, Continuous Positive Airway Pressure (ICD-10-PCS; 2023-10-21)
PROC: 5A0935A Assistance with Respiratory Ventilation, Less than 24 Consecutive Hours, High Flow/Velocity Cannula (ICD-10-PCS; 2023-10-22)
PROC: 5A09357 Assistance with Respiratory Ventilation, Less than 24 Consecutive Hours, Continuous Positive Airway Pressure (ICD-10-PCS; 2023-10-22)
PROC: 5A09357 Assistance with Respiratory Ventilation, Less than 24 Consecutive Hours, Continuous Positive Airway Pressure (ICD-10-PCS; 2023-10-23)
DX: I11.0 Hypertensive heart disease with heart failure (principal); E43 Unspecified severe protein-calorie malnutrition; J96.22 Acute and chronic respiratory failure with hypercapnia; J96.21 Acute and chronic respiratory failure with hypoxia; I50.23 Acute on chronic systolic (congestive) heart failure; E66.2 Morbid (severe) obesity with alveolar hypoventilation; N39.0 Urinary tract infection, site not specified; L03.90 Cellulitis, unspecified; N17.9 Acute kidney failure, unspecified; Z68.43 Body mass index [BMI] 50.0-59.9, adult; E87.5 Hyperkalemia; F32.A Depression, unspecified; I89.0 Lymphedema, not elsewhere classified; L89.312 Pressure ulcer of right buttock, stage 2; D53.9 Nutritional anemia, unspecified; E11.65 Type 2 diabetes mellitus with hyperglycemia; E11.51 Type 2 diabetes mellitus with diabetic peripheral angiopathy without gangrene; M06.9 Rheumatoid arthritis, unspecified; Z88.8 Allergy status to other drugs, medicaments and biological substances; Z82.3 Family history of stroke; Z79.51 Long term (current) use of inhaled steroids; Z79.899 Other long term (current) drug therapy

== ENCOUNTER 2023-11-14 11:41 | Emergency (ER) | payer MEDICARE ==
[~2023-11-14] VITALS: Ht 172.7 cm; Wt 142.1 kg
[~2023-11-14 11:41] MED LIST changes: +ALDACTONE25 M1 PO; +KAPSPARGO SPRIN50 MG PO; +LIPITOR20 MG PO; +MELATONIN5 M1 PO; +PHARMASSURE V500 MCG PO
[2023-11-14] MEDS ORDERED: IOHEXOL 300 MG/ML 100 ML VIAL IV ONE (11:50)
[2023-11-14] MEDS ORDERED: IOHEXOL 300 MG/ML 100 ML VIAL ONE (12:02)
[2023-11-14] MEDS ORDERED: SODIUM CHLORIDE 0.9% 1,000 ML IV ONE (12:30)
[2023-11-14] MEDS ORDERED: TRANEXAMIC ACID IN NACL,ISO-OS 100 ML IV ONE (12:35)
[2023-11-14 12:59] LABS: BASO % 0.3 % (0.0-1.0); EOS # 0.1 10*3/uL (0.0-0.4); EOS % 1.1 % (1.0-4.0); HEMATOCRIT 28.7 % (42.0-52.0); LYMPH # 0.9 10*3/uL (1.3-4.4); LYMPH % 8.1 % (27.0-41.0); MEAN CORPUSCULAR HGB 29.3 pg (27.0-31.0); MEAN CORPUSCULAR HGB CONC 29.6 g/dl (33.0-37.0); MEAN PLATELET VOLUME 10.7 fl (9.6-12.3); MONO # 0.5 10*3/uL (0.1-1.0); MONO % 5.1 % (3.0-9.0); NEUT % 84.6 % (47.0-73.0); PLATELET COUNT AUTOMATED 192 10*3/uL (130-400); RED CELL DISTRI WIDTH 13.9 % (0-14.5); WHITE BLOOD COUNT 10.7 10*3/uL (4.8-10.8)
[2023-11-14 13:10] LABS: ACT PARTIAL THROMBO TIME 27.3 SECONDS (20.0-32.1)
[2023-11-14 13:16] LABS: BUN 57 mg/dl (9-23); CHLORIDE 100 mmol/L (98-107); CPK 417 U/L (34-171); LIPASE 33 U/L (12-53); POTASSIUM 4.3 mmol/L (3.4-5.1)
== END 2023-11-14 13:05 | disposition short-term general hospital (02) ==
LOC: ED 11:41
PROVIDERS: Emergency Medicine
DX: S13.161A Dislocation of C5/C6 cervical vertebrae, initial encounter (principal); S05.12XA Contusion of eyeball and orbital tissues, left eye, initial encounter; G83.9 Paralytic syndrome, unspecified; I11.0 Hypertensive heart disease with heart failure; I50.9 Heart failure, unspecified; J44.9 Chronic obstructive pulmonary disease, unspecified; E11.9 Type 2 diabetes mellitus without complications; E78.5 Hyperlipidemia, unspecified; Z88.8 Allergy status to other drugs, medicaments and biological substances; Z98.890 Other specified postprocedural states; Z96.653 Presence of artificial knee joint, bilateral; Z95.5 Presence of coronary angioplasty implant and graft; W19.XXXA Unspecified fall, initial encounter; Y93.89 Activity, other specified; Y92.89 Other specified places as the place of occurrence of the external cause; Y99.8 Other external cause status